=== PATIENT | male | born 1940 | race Caucasian/White ===

== ENCOUNTER → 2016-10-01 | Outpatient (CLI) | payer MEDICARE | LOC: M SMT 10:09 | PROVIDERS: ATTEND Nurse Practitioner Women's Health | DX: Z12.5 Encounter for screening for malignant neoplasm of prostate (principal) | CPT/HCPCS: 36415; G0103 ==

== ENCOUNTER → 2016-10-09 | Outpatient (CLI) | payer MEDICARE ==
[~2016-10-09] MED LIST: ASPI1TAB PO; CIPR500T3 PO; MULT1TAB10 PO; OMEG1400 PO; RAPA8CAP PO; SIMV20TA2 PO; TRAM50TA2 PO; TYLE650T35 PO; VALS80TA PO; VITA400C97 PO; VITA500T53 PO
[2016-10-09 13:58] LABS: ANION GAP 8 MEQ/L (8-16); BLOOD UREA NITROGEN 17 MG/DL (7-18); CALCIUM LEVEL 9.1 MG/DL (8.8-10.2); CARBON DIOXIDE LEVEL 27 MEQ/L (21-32); CHLORIDE LEVEL 102 MEQ/L (98-107); CREATININE FOR GFR 1.06 MG/DL (0.70-1.30); GLOMERULAR FILTRATION RATE > 60.0 (>42); GLUCOSE, FASTING 126 MG/DL (83-110); POTASSIUM SERUM 3.9 MEQ/L (3.5-5.1); SODIUM LEVEL 137 MEQ/L (136-145)
== END ==
LOC: M SMT 08:49
PROVIDERS: ATTEND Nurse Practitioner Women's Health
DX: R31.0 Gross hematuria (principal)
CPT/HCPCS: 36415; 80048; 81001; 87086; 88108; G0463

== ENCOUNTER → 2016-10-11 | Outpatient (CLI) | payer MEDICARE ==
[~2016-10-11] MED LIST changes: -ASPI1TAB PO; -CIPR500T3 PO; +ISOVUE-370 76% 100ML VIAL (Q9967) As Ordered ONE; -MULT1TAB10 PO; -OMEG1400 PO; -RAPA8CAP PO; -SIMV20TA2 PO; -TRAM50TA2 PO; -TYLE650T35 PO; -VALS80TA PO; -VITA400C97 PO; -VITA500T53 PO
--- NOTE | 2016-10-11 09:25 | REP ---
CT abdomen pelvis multiphase imaging: Scanning is initially performed without IV contrast. This is followed by scanning with IV contrast, initially during the portal venous phase of enhancement. This is followed by delayed equilibrium phase scanning. There is a 4.6 cm bladder mass along the posterolateral bladder wall on the left. There is no hydronephrosis. There are no renal, ureteral or bladder calculi. There is a low-density 12 mm left renal mass anteriorly at the mid pole, containing internal echoes. This is not clearly a cyst by CT. I would recommend follow-up MRI or ultrasound for further evaluation. The visualized lung cohen are unremarkable. The hepatic parenchyma is homogeneous and unremarkable. The gallbladder, pancreas and spleen are unremarkable. The adrenals are unremarkable. The abdominal aorta contains occasional calcified atheroma but is otherwise unremarkable. The bowel and mesentery are unremarkable. Pelvis: The appendix is unremarkable. There is no adenopathy or ascites. The pelvic bowel loops are unremarkable. There are no lytic, blastic or destructive skeletal changes. Degenerative disc disease at L5 S1. Impression: There is a 4.6 cm bladder mass along the posterolateral bladder wall on the left. There is a 1.2 cm left renal cortical hypodensity, not clearly a cyst by CT. Recommend follow-up MRI or ultrasound for further evaluation. Degenerative disc disease at L5 S1. No adenopathy or ascites. No hydronephrosis. Signed by Raji Bridges MD 10/11/2016 09:16 A
== END ==
LOC: M RAD 07:40
PROVIDERS: ATTEND Nurse Practitioner Women's Health
DX: R31.0 Gross hematuria (principal)
CPT/HCPCS: 74178; Q9967

== ENCOUNTER → 2016-10-18 | Outpatient (REF) | payer MEDICARE | LOC: M LAB REF 13:17 | PROVIDERS: ATTEND Internal Medicine | DX: D51.9 Vitamin B12 deficiency anemia, unspecified (principal) ==

== ENCOUNTER → 2016-11-15 | Outpatient (CLI) | payer MEDICARE ==
[~2016-11-15] MED LIST changes: +ASPI1TAB PO; +CIPR500T3 PO; -ISOVUE-370 76% 100ML VIAL (Q9967) As Ordered ONE; +MULT1TAB10 PO; +OMEG1400 PO; +RAPA8CAP PO; +SIMV20TA2 PO; +TRAM50TA2 PO; +TYLE650T35 PO; +VALS80TA PO; +VITA400C97 PO; +VITA500T53 PO
--- NOTE | 2016-11-15 13:49 | REP ---
PA and lateral chest: Comparison is a 03/2005. The lung cohen are clear. The cardiac size is normal The emily, mediastinum, and bony thorax are unremarkable. Impression: Negative PA and lateral chest. There is no interval change Signed by Raji Bridges MD 11/15/2016 01:41 P
[2016-11-15 18:48] LABS: ANION GAP 9 MEQ/L (8-16); BLOOD UREA NITROGEN 19 MG/DL (7-18); CALCIUM LEVEL 9.4 MG/DL (8.8-10.2); CARBON DIOXIDE LEVEL 27 MEQ/L (21-32); CHLORIDE LEVEL 103 MEQ/L (98-107); CREATININE FOR GFR 0.98 MG/DL (0.70-1.30); GLOMERULAR FILTRATION RATE > 60.0 (>42); GLUCOSE, FASTING 125 MG/DL (83-110); POTASSIUM SERUM 3.8 MEQ/L (3.5-5.1); SODIUM LEVEL 139 MEQ/L (136-145)
[2016-11-15 19:30] LABS: MEAN CORPUSCULAR HEMOGLOBIN 35.2 pg (27.0-33.0); MEAN CORPUSCULAR HGB CONC 35.2 g/dl (32.0-36.5); MEAN CORPUSCULAR VOLUME 100.1 fl (80.0-96.0); RED CELL DISTRIBUTION WIDTH 14.1 % (11.5-14.5); WHITE BLOOD COUNT 5.2 K/mm3 (4.0-10.0)
[2016-11-15 19:51] LABS: INR 0.99
== END ==
LOC: M SMT 13:18
PROVIDERS: ATTEND Urology
DX: R31.0 Gross hematuria (principal)

== ENCOUNTER 2016-11-27 09:34 | Day surgery (SDC) | payer MEDICARE ==
[~2016-11-27] VITALS: Ht 180.3 cm; Wt 129.3 kg
[~2016-11-27 09:34] MED LIST changes: -CIPR500T3 PO; -TYLE650T35 PO
[2016-11-27] MEDS ORDERED: PROPOFOL 200 MG/20 ML VIAL As Ordered ONE ×2 (09:43→14:14)
[2016-11-27] MEDS ORDERED: MIDAZOLAM INJ 2 MG/2 ML VIAL (J2250) As Ordered ONE (09:43)
[2016-11-27] MEDS ORDERED: dexameTHASONE 4 MG/ML 1ML VIAL (J1100) As Ordered ONE ×2 (09:43→16:26)
[2016-11-27] MEDS ORDERED: LIDOCAINE 2% INJ 100 MG/5 ML SDV (FOR ANES.) As Ordered ONE (09:43)
[2016-11-27] MEDS ORDERED: fentaNYL 100 MCG/2 ML INJECTION (J3010) As Ordered ONE ×2 (09:44→15:02)
[2016-11-27] MEDS ORDERED: LR 1,000 ML IV ONE (09:45)
[2016-11-27] MEDS ORDERED: ROCURONIUM BROMIDE 50 MG/5 ML VIAL/SYRINGE As Ordered ONE ×2 (14:13→15:50)
[2016-11-27] MEDS ORDERED: GLYCOPYRROLATE INJ 0.2 MG/ML 2 ML VIAL As Ordered ONE (15:02)
[2016-11-27] MEDS ORDERED: NEOSTIGMINE 1MG/ML 5 ML SYRINGE (J2710) As Ordered ONE (15:02)
[2016-11-27] MEDS ORDERED: ONDANSETRON 4MG/2ML VIAL (J2405) As Ordered ONE (15:02)
[2016-11-27] MEDS ORDERED: LABETALOL HCL 100 MG/20 ML VIAL As Ordered ONE (15:17)
[2016-11-27] MEDS ORDERED: TYLE650T35 PO (16:42)
[2016-11-27] MEDS ORDERED: CIPR500T3 PO (16:42)
[2016-11-27] MEDS ORDERED: ONDANSETRON 4MG/2ML VIAL (J2405) IV PRN (17:15)
[2016-11-27] MEDS ORDERED: PERCOCET 5MG/325MG TAB PO PRN (17:15)
[2016-11-27] MEDS ORDERED: LR 1,000 ML IV SCH (17:15)
[2016-11-27] MEDS ORDERED: HYDROmorphone HCL 1 MG/ML SYRINGE (J1170) IV PRN (17:15)
[2016-11-27] MEDS ORDERED: fentaNYL 100 MCG/2 ML INJECTION (J3010) IV PRN (17:15)
[2016-11-27] MEDS ORDERED: LABETALOL HCL 100 MG/20 ML VIAL IV SCH (17:15)
[2016-11-27] MEDS ORDERED: CIPROFLOXACIN 500 MG TAB PO SCH (18:00)
[2016-11-27 20:45] VITALS: BP 169/76
[2016-11-27] MEDS ORDERED: ACETAMINOPHEN 650MG ER TAB (TYLENOL ARTHRITIS) PO SCH (22:00)
--- NOTE | 2016-11-29 08:10 | RO ---
DATE OF PROCEDURE: 11/27/2016 PREPROCEDURE DIAGNOSIS: Left lateral posterior papillary bladder tumor. POSTPROCEDURE DIAGNOSIS: Left lateral posterior papillary bladder tumor. FINDINGS: 5 cm posterolateral left bladder tumor with calcifications, papillary and sessile, in the posterior bladder wall lateral and involving the trigone, also, on the left side. We could see very clearly the right ureteral orifice, the left ureteral orifice was not seen clearly at all during the procedure, and was not detected at any moment in time during the procedure. PROCEDURE: Cystoscopy, plus urethral dilatation, plus transurethral resection of bladder tumor, bipolar transurethral resection of bladder tumor. SURGEON: Azar Monahan MD REFLOW OPERATOR: ANESTHESIA: General. COMPLICATIONS: None. ESTIMATED BLOOD LOSS: N/A. HISTORY OF THE PRESENT ILLNESS: A 76-year-old male patient with a history of hematuria. He had a CT scan of the abdomen and pelvis, which actually shows a very large papillary mass in the posterolateral wall on the left side. The patient had a cystoscopy that confirmed this mass in the bladder. It was very difficult to actually visualize the trigone at that moment in time. For this reason, he was consented for a cystoscopy, plus transurethral resection of bladder tumor. DESCRIPTION OF PROCEDURE: With the patient under general anesthesia in supine modified low lithotomy position, after prepping and draping the area of concern, which included the entire genitalia and abdomen, we introduced a #21-[place] cystoscope with a 30-degree lens under videoendoscopic guidance. We could not pass the cystoscope through the penile fossa navicularis. For this reason, we dilated the urethra with a 30 Charriere Radha sound. We then passed the cystoscope. The penile urethra, bulbar urethra, membranous urethra and prostatic urethra were totally normal. The prostate had lateral lobes touching and a small middle lobe. You could see the right ureteral orifice very well. The left ureteral orifice was not seen; it was covered completely by this left lateral solid sessile with calcifications and papillary mass, about 5 cm in diameter. There were no other tumors in the bladder. We then proceeded to exchange the cystoscope for a resectoscope and resected the mass. It was very difficult to resect the mass because it was a very large tumor. Once the whole tumor was resected, we resected also the deep tissue, and we fulgurated bleeding vessels. We tried to visualize the ureteral orifice. There was no ureteral orifice. We think that the mass is actually lateral to the ureteral orifice on the left side that also was involving the left ureteral orifice. However, on the prior CT scan, there was no hydronephrosis. At that moment I time, we waited to have some urine coming out from the right ureteral orifice. We could see the right ureteral orifice very clearly. The left ureteral orifice was not seen at all and was not visualized. For this reason, we decided to actually not fulgurate so much on the area of the trigone to prevent any occlusion. We only resected at that level, but we could not visualize at all the ureteral orifice on that side. For this reason, we actually took out the chips of the bladder tumor with an [employer] evacuator, and once hemostasis was confirmed, we took the resectoscope and placed a Lainez catheter, #20-Northern Irish, three-way, inflated the balloon to 30 mL. PLAN: The patient will go home when the urine return is clear. He will have a voiding trial in about 5 days. 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 This is the best option for him at this moment in time since the mass is so large, more than 5 cm, with calcifications showing very high aggressivity and involving the muscle. We will actually plan for this once the patient is totally recovered from this procedure. In any case, if there is any left flank pain, and the patient has hydronephrosis on the left side, we will have to put a nephrostomy tube on that left side. We will follow the patient closely.
== END 2016-11-27 20:50 | disposition home or self-care (01) ==
LOC: M SDC 09:34
PROVIDERS: ATTEND Urology
DX: C67.9 Malignant neoplasm of bladder, unspecified (principal); I11.9 Hypertensive heart disease without heart failure; E78.5 Hyperlipidemia, unspecified; M12.9 Arthropathy, unspecified; M54.9 Dorsalgia, unspecified; R51 Headache; E53.8 Deficiency of other specified B group vitamins; R73.01 Impaired fasting glucose; N40.0 Benign prostatic hyperplasia without lower urinary tract symptoms; Z79.899 Other long term (current) drug therapy; Z79.82 Long term (current) use of aspirin; Z87.891 Personal history of nicotine dependence; Z96.1 Presence of intraocular lens
CPT/HCPCS: 36415; 52235; 86850; 86900; 86901; 88305; J0690; J1100; J2250; J2405; J2710; J3010

== ENCOUNTER → 2016-12-26 | Outpatient (REF) | payer MEDICARE ==
[~2016-12-26] MED LIST changes: +CIPR500T3 PO; +TYLE650T35 PO
== END ==
LOC: M SMT 13:10
PROVIDERS: ATTEND Nurse Practitioner Women's Health
DX: R31.0 Gross hematuria (principal)

== ENCOUNTER → 2017-03-03 | Outpatient (REF) | payer MEDICARE ==
[~2017-03-03] MED LIST changes: +FISH100049 PO
== END ==
LOC: M SMT 13:08
PROVIDERS: ATTEND Urology
DX: Z01.818 Encounter for other preprocedural examination (principal); C67.9 Malignant neoplasm of bladder, unspecified

== ENCOUNTER → 2017-03-25 | Outpatient (CLI) | payer MEDICARE ==
[2017-03-25 13:06] LABS: MEAN CORPUSCULAR HEMOGLOBIN 34.2 pg (27.0-33.0); MEAN CORPUSCULAR HGB CONC 34.7 g/dl (32.0-36.5); MEAN CORPUSCULAR VOLUME 98.6 fl (80.0-96.0); PLATELET COUNT, AUTOMATED 248 10^3/uL (150-450); RED CELL DISTRIBUTION WIDTH 14.2 % (11.5-14.5); WHITE BLOOD COUNT 6.1 10^3/uL (4.0-10.0)
[2017-03-25 13:14] LABS: ANION GAP 6 MEQ/L (8-16); BLOOD UREA NITROGEN 20 MG/DL (7-18); CALCIUM LEVEL 9.4 MG/DL (8.8-10.2); CARBON DIOXIDE LEVEL 31 MEQ/L (21-32); CHLORIDE LEVEL 105 MEQ/L (98-107); CREATININE FOR GFR 1.04 MG/DL (0.70-1.30); GLOMERULAR FILTRATION RATE > 60.0 (>42); GLUCOSE, FASTING 110 MG/DL (83-110); POTASSIUM SERUM 4.6 MEQ/L (3.5-5.1); SODIUM LEVEL 142 MEQ/L (136-145)
== END ==
LOC: M SMT 10:40
PROVIDERS: ATTEND Urology
DX: Z01.818 Encounter for other preprocedural examination (principal); C67.9 Malignant neoplasm of bladder, unspecified

== ENCOUNTER 2017-04-09 11:28 | Day surgery (SDC) | payer MEDICARE ==
[~2017-04-09] VITALS: Ht 180.3 cm; Wt 126.0 kg
[2017-04-09] MEDS ORDERED: LR 1,000 ML IV ONE (11:45)
[2017-04-09] MEDS ORDERED: WATER INTRAVESIC ONE (12:30)
[2017-04-09] MEDS ORDERED: MITOMYCIN 40 MG INTRAVESIC ONE (12:30)
[2017-04-09] MEDS ORDERED: PROPOFOL 200 MG/20 ML VIAL As Ordered ONE ×3 (14:48→16:38)
[2017-04-09] MEDS ORDERED: fentaNYL 100 MCG/2 ML INJECTION (J3010) As Ordered ONE (14:49)
[2017-04-09] MEDS ORDERED: ROCURONIUM BROMIDE 50 MG/5 ML VIAL As Ordered ONE (15:05)
[2017-04-09] MEDS ORDERED: PHENYLEPHRINE INJ 10MG/ML VIAL (J2370) As Ordered ONE (15:29)
[2017-04-09] MEDS ORDERED: METHYLENE BLUE 0.5% (5MG/ML) 10 ML AMP (PROVAYBLUE)(Q9968 PER 1MG) As Ordered ONE (16:04)
[2017-04-09] MEDS ORDERED: CONRAY-60 60% 50ML VIAL (Q9961) As Ordered ONE (16:07)
[2017-04-09] MEDS ORDERED: ISOVUE-300 61% 50ML VIAL (Q9967) As Ordered ONE (16:07)
[2017-04-09] MEDS ORDERED: NEOSTIGMINE 10 MG/10 ML VIAL (J2710) As Ordered ONE (16:21)
[2017-04-09] MEDS ORDERED: ONDANSETRON 4MG/2ML VIAL (J2405) As Ordered ONE (16:21)
[2017-04-09] MEDS ORDERED: GLYCOPYRROLATE INJ 0.2 MG/ML 2 ML VIAL As Ordered ONE (16:21)
[2017-04-09] MEDS ORDERED: TYLE650T35 PO (17:17)
[2017-04-09] MEDS ORDERED: CIPR500T3 PO (17:17)
[2017-04-09] MEDS ORDERED: fentaNYL 100 MCG/2 ML INJECTION (J3010) IV PRN (17:30)
[2017-04-09] MEDS ORDERED: ONDANSETRON 4MG/2ML VIAL (J2405) IV PRN (17:30)
[2017-04-09] MEDS ORDERED: LR 1,000 ML IV SCH (17:30)
[2017-04-09] MEDS ORDERED: PERCOCET 5MG/325MG TAB PO PRN (17:30)
[2017-04-09] MEDS ORDERED: ACETAMINOPHEN 650MG ER TAB (TYLENOL ARTHRITIS) PO PRN (17:45)
[2017-04-09] MEDS ORDERED: CIPROFLOXACIN 500 MG TAB PO SCH (18:00)
[2017-04-09 19:40] VITALS: BP 161/76
--- NOTE | 2017-04-11 10:03 | RO ---
DATE OF PROCEDURE: 04/09/2017 PREOPERATIVE DIAGNOSIS: Bladder neoplasm. POSTOPERATIVE DIAGNOSIS: Bladder neoplasm. SURGERY PERFORMED: Cystoscopy, plus exam under anesthesia, plus transurethral resection of two bladder tumors (one bladder tumor 1 cm in diameter in the posterior bladder wall on the left side and another bladder tumor about 2 cm in the left lateral wall). SURGEON: Dr. Azar Monahan SAFETY TRAINER: ANESTHESIA: Monitored anesthesia care (MAC). FINDINGS: Recurrent bladder neoplasm. Undetectable left ureteral orifice. COMPLICATIONS: None. ESTIMATED BLOOD LOSS: Minimal. HISTORY OF PRESENT ILLNESS: 76-year-old male patient who back in October of [address] scan of the abdomen and pelvis that showed a large bladder neoplasm. For this reason, he was taken to the operating room (OR) for transurethral resection of bladder tumor (TURBT). During that first cystoscopy plus TURBT, we did not find the ureteral orifice on the left side and the tumor was completely resected. The tumor showed low-grade papillary bladder tumor, non-muscle invasive. For this reason, he was followed up at 3 months with a flexible cystoscopy. The flexible cystoscopy showed two recurrences, one in the posterior bladder wall about 1 cm in diameter and one in the left lateral wall about 2 cm in diameter. For this reason, he was consented for cystoscopy plus TURBT. Of note, the patient never had flank pain or any type of abdominal pain. PROCEDURE DESCRIPTION: In a patient under MAC anesthesia in supine modified low lithotomy position, we prepped and draped the area of concern, which included the entire genitalia and abdomen. We inserted a cystoscope, #22-Kuwaiti in diameter, with a 30-degree lens under videoendoscopic guidance. We then proceeded to actually visualize that we could not pass the tip of the fossa navicularis. For this reason, we dilated the urethra with [place] sounds up to #30 Charriere. We then passed a cystoscope. The penile urethra, bulbar urethra, and membranous urethra were totally normal. The prostatic urethra had lateral lobes touching and an elevated bladder neck. The trigones showed a right ureteral orifice permeable. The bladder had a papillary tumor of about 1 cm diameter in left posterior part of the bladder and a 2 cm papillary tumor in the left superior bladder wall. The left ureteral orifice could not be seen. The trigone could be visualized, and there was no left ureteral orifice. For this reason, we took the cystoscope out and then placed a resectoscope. Under normal saline resection, bipolar resection, resected the posterior bladder neoplasm and sent it for permanent pathology analysis. We then resected left lateral wall 2 cm papillary tumor and sent it for permanent pathology analysis. In an attempt to actually try to identify the left ureteral orifice, we gave the patient methylene blue. There was some methylene blue coming out from the right ureteral orifice and none from the left. Since there was a trigone very well evident on the left side, we resected with cut only (no fulguration) the left trigone and we could not identify the left ureteral orifice at all. There was no methylene blue coming out from the left ureteral orifice. For this reason, we actually proceeded to extract every single specimen out and sent it for permanent pathology analysis also as left trigone resection. We then proceeded to actually empty the bladder and take out the resectoscope and place a Lainez catheter, #22-[place]i, inflated the balloon to 20 mL. We then proceeded to place Mitomycin C 40 mL and 40 mg and clamp the Lainez catheter for at least 1-2 hours. PLAN: The patient will pass to recovery. He will turn 15 minutes to each side, right decubito-lateral, left decubito-lateral, supine, and prone for at least 1-2 hours, and then we will open the Lainez to gravity and keep it to gravity. He will go home today with antibiotic and Tylenol for pain. He will followup on Friday for discontinuation of the Lainez. We will order a CT scan of the abdomen and pelvis with IV contrast to see if there is hydronephrosis in the left kidney and to see what is the staging at this moment in time of the recurrent papillary neoplasm of the bladder.
== END 2017-04-09 19:45 | disposition home or self-care (01) ==
LOC: M SDC 11:28
PROVIDERS: ATTEND Urology
DX: C67.2 Malignant neoplasm of lateral wall of bladder (principal); C67.4 Malignant neoplasm of posterior wall of bladder; I10 Essential (primary) hypertension; E78.00 Pure hypercholesterolemia, unspecified; M16.0 Bilateral primary osteoarthritis of hip; N40.0 Benign prostatic hyperplasia without lower urinary tract symptoms; E66.9 Obesity, unspecified; Z87.891 Personal history of nicotine dependence; Z79.899 Other long term (current) drug therapy
CPT/HCPCS: 36415; 52235; 86850; 86900; 86901; 88305; J0690; J2370; J2405; J2710; J3010; J9280; Q9968

== ENCOUNTER → 2017-04-14 | Outpatient (CLI) | payer MEDICARE ==
[2017-04-14 12:15] LABS: ANION GAP 7 MEQ/L (8-16); BLOOD UREA NITROGEN 19 MG/DL (7-18); CALCIUM LEVEL 9.7 MG/DL (8.8-10.2); CARBON DIOXIDE LEVEL 31 MEQ/L (21-32); CHLORIDE LEVEL 99 MEQ/L (98-107); CREATININE FOR GFR 1.22 MG/DL (0.70-1.30); GLOMERULAR FILTRATION RATE > 60.0 (>42); GLUCOSE, FASTING 127 MG/DL (83-110); POTASSIUM SERUM 4.4 MEQ/L (3.5-5.1); SODIUM LEVEL 137 MEQ/L (136-145)
== END ==
LOC: M SMT 09:40
PROVIDERS: ATTEND Nurse Practitioner Women's Health
DX: C67.9 Malignant neoplasm of bladder, unspecified (principal)

== ENCOUNTER → 2017-04-16 | Outpatient (CLI) | payer MEDICARE ==
[~2017-04-16] MED LIST changes: +ISOVUE-370 76% 100ML VIAL (Q9967) As Ordered ONE
--- NOTE | 2017-04-17 10:13 | REP ---
CT abdomen and pelvis without and with IV contrast: Without oral contrast. CT urogram protocol. History: Bladder carcinoma. Renal lesion. On April 10, 2017, the patient underwent cystoscopy and urethral dilation. 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 Comparison study: October 11, 2016. The prior study showed a 4.6 cm bladder mass and an equivocal 1.2 cm low density left renal mass. CT contrast dose: 100 ml of intravenous Isovue 370. CT findings: Preliminary digital clinical engineering manager radiograph is unremarkable. The lung bases are clear. The liver and the spleen remain normal in size, homogeneous in texture. There is a 12 mm cyst in the left kidney. Today's study shows new moderate hydronephrosis and hydroureter on the left. There is some left posterior bladder wall thickening but the bladder mass seen previously appears to have been resected. A small droplet of air is seen in the bladder consistent with residual procedural air. There is mild perivesical stranding. No ureteral calculus is seen. Seminal vesicles and prostate are unremarkable. Left colonic diverticulosis is seen. No retroperitoneal mass or adenopathy is observed. No hydronephrosis on the right. No renal mass lesion is seen. Delayed scan images demonstrate delayed opacification of the dilated left ureter. No filling defect in the collecting system on the right is seen. Impression: Previously noted bladder tumor has been resected. Some residual procedural air is seen in the urinary bladder and there is some thickening of the left posterior bladder wall. There is new mild to moderate left-sided hydronephrosis and hydroureter. No stone is seen. Signed by Hema Hobbs MD 04/17/2017 03:55 P
== END ==
LOC: M RAD 15:21
PROVIDERS: ATTEND Nurse Practitioner Women's Health
DX: C67.9 Malignant neoplasm of bladder, unspecified (principal); N28.9 Disorder of kidney and ureter, unspecified
CPT/HCPCS: 74178; Q9967

== ENCOUNTER → 2017-04-24 | Outpatient (CLI) | payer MEDICARE ==
[~2017-04-24] MED LIST changes: -ISOVUE-370 76% 100ML VIAL (Q9967) As Ordered ONE
--- NOTE | 2017-04-24 11:54 | REP ---
Clinical: Bladder neoplasm . Comparison: 11/15/2016 . Technique: PA and lateral. Findings: The mediastinum and cardiac silhouette are normal. The lung cohen are clear and without acute consolidation, effusion, or pneumothorax. The skeletal structures are intact and normal. Impression: 1. No acute cardiopulmonary process. Signed by Andre Cai MD 04/24/2017 11:44 A
[2017-04-24 18:33] LABS: MEAN CORPUSCULAR HEMOGLOBIN 33.8 pg (27.0-33.0); MEAN CORPUSCULAR HGB CONC 34.5 g/dl (32.0-36.5); PLATELET COUNT, AUTOMATED 309 10^3/uL (150-450); RED CELL DISTRIBUTION WIDTH 13.2 % (11.5-14.5)
[2017-04-24 18:35] LABS: ANION GAP 6 MEQ/L (8-16); BLOOD UREA NITROGEN 17 MG/DL (7-18); CALCIUM LEVEL 8.9 MG/DL (8.8-10.2); CARBON DIOXIDE LEVEL 30 MEQ/L (21-32); CHLORIDE LEVEL 105 MEQ/L (98-107); CREATININE FOR GFR 0.99 MG/DL (0.70-1.30); GLOMERULAR FILTRATION RATE > 60.0 (>42); GLUCOSE, FASTING 107 MG/DL (83-110); POTASSIUM SERUM 4.4 MEQ/L (3.5-5.1); SODIUM LEVEL 141 MEQ/L (136-145)
== END ==
LOC: M SMT 11:05
PROVIDERS: ATTEND Urology
DX: C67.9 Malignant neoplasm of bladder, unspecified (principal); Z79.899 Other long term (current) drug therapy; Z79.01 Long term (current) use of anticoagulants

== ENCOUNTER 2017-05-13 05:57 | Inpatient (IN) | payer MEDICARE ==
[2017-05-13] MEDS: LR 1,000 ML IV ×2 (07:00→20:15)
[2017-05-13] MEDS ORDERED: fentaNYL 100 MCG/2 ML INJECTION (J3010) As Ordered (07:20)
[2017-05-13] MEDS ORDERED: ONDANSETRON 4MG/2ML VIAL (J2405) As Ordered ×2 (07:20→19:07)
[2017-05-13] MEDS ORDERED: ROCURONIUM BROMIDE 50 MG/5 ML VIAL As Ordered ×4 (07:20→17:31)
[2017-05-13] MEDS ORDERED: PROPOFOL 200 MG/20 ML VIAL As Ordered (07:20)
[2017-05-13] MEDS ORDERED: LIDOCAINE 2% INJ 100 MG/5 ML SDV (FOR ANES.) As Ordered (07:20)
[2017-05-13] MEDS ORDERED: METOCLOPRAMIDE INJ 10MG/2ML VIAL (J2765) As Ordered (07:20)
[2017-05-13] MEDS: CEFOTETAN DISODIUM 2 GM in APPROPRIATE DILUENT 1 EA IV (07:39)
[2017-05-13] MEDS ORDERED: fentaNYL 250 MCG/5 ML INJECTION (J3010) As Ordered ×2 (07:57→11:28)
[2017-05-13] MEDS ORDERED: hydrALAZINE INJ 20 MG/ML VIAL As Ordered (11:34)
[2017-05-13] MEDS ORDERED: dexameTHASONE 4 MG/ML 1ML VIAL (J1100) As Ordered (13:33)
[2017-05-13] MEDS: cefoTEtan INJ 2GM VIAL (S0074 PER 500MG) As Ordered (15:30)
[2017-05-13] MEDS ORDERED: GLYCOPYRROLATE INJ 0.2 MG/ML 2 ML VIAL As Ordered ×2 (19:07)
[2017-05-13] MEDS ORDERED: NEOSTIGMINE 10 MG/10 ML VIAL (J2710) As Ordered (19:07)
[2017-05-13] MEDS ORDERED: MORPHINE 10 MG/ML 1ML VIAL IV (20:15)
[2017-05-13] MEDS ORDERED: ONDANSETRON 4MG/2ML VIAL (J2405) IV ×2 (20:15)
[2017-05-13] MEDS: KCL 20MEQ IN D5/0.45NS 1000ML 1,000 ML IV (20:15)
[2017-05-13] MEDS: fentaNYL 100 MCG/2 ML INJECTION (J3010) IV ×4 (20:16→20:43)
[2017-05-13 20:48] LABS: HEMATOCRIT 40.9 % (42.0-52.0); HEMOGLOBIN 13.9 g/dl (14.0-18.0); MEAN CORPUSCULAR HEMOGLOBIN 32.9 pg (27.0-33.0); MEAN CORPUSCULAR VOLUME 96.9 fl (80.0-96.0); PLATELET COUNT, AUTOMATED 272 10^3/uL (150-450); RED BLOOD COUNT 4.22 10^6/uL (4.30-6.10); RED CELL DISTRIBUTION WIDTH 14.2 % (11.5-14.5); WHITE BLOOD COUNT 13.8 10^3/uL (4.0-10.0)
[2017-05-13] MEDS ORDERED: MEPERIDINE INJ 25 MG/ML VIAL (J2175) As Ordered (20:51)
[2017-05-13] MEDS: MEPERIDINE INJ 25 MG/ML VIAL (J2175) IV ×2 (20:56→21:03)
[2017-05-13 20:57] LABS: ANION GAP 11 MEQ/L (8-16); BLOOD UREA NITROGEN 25 MG/DL (7-18); CALCIUM LEVEL 8.7 MG/DL (8.8-10.2); CARBON DIOXIDE LEVEL 26 MEQ/L (21-32); CHLORIDE LEVEL 103 MEQ/L (98-107); CREATININE FOR GFR 2.55 MG/DL (0.70-1.30); GLOMERULAR FILTRATION RATE 26.3 (>42); GLUCOSE, FASTING 211 MG/DL (83-110); MAGNESIUM LEVEL 2.4 MG/DL (1.8-2.4); PHOSPHORUS LEVEL 3.4 MG/DL (2.5-4.9); POTASSIUM SERUM 4.1 MEQ/L (3.5-5.1); SODIUM LEVEL 140 MEQ/L (136-145)
[2017-05-13] MEDS ORDERED: KETOROLAC 30 MG/ML VIAL (J1885) IV (21:00)
[2017-05-13] MEDS: ACETAMINOPHEN 650MG ER TAB (TYLENOL ARTHRITIS) PO (22:00)
[2017-05-14] MEDS: MORPHINE 4 MG/ML 1ML SYRINGE IV ×4 (02:23→19:55)
[2017-05-14] MEDS: CEFOTETAN DISODIUM 2 GM in APPROPRIATE DILUENT 1 EA IV ×2 (03:41→14:25)
[2017-05-14] MEDS: KCL 20MEQ IN D5/0.45NS 1000ML 1,000 ML IV ×4 (04:16→22:58)
[2017-05-14] MEDS: ACETAMINOPHEN 650MG ER TAB (TYLENOL ARTHRITIS) PO ×3 (04:17→21:02)
[2017-05-14 05:52] LABS: HEMATOCRIT 36.2 % (42.0-52.0); HEMOGLOBIN 12.6 g/dl (14.0-18.0); MEAN CORPUSCULAR HEMOGLOBIN 33.5 pg (27.0-33.0); MEAN CORPUSCULAR HGB CONC 34.8 g/dl (32.0-36.5); MEAN CORPUSCULAR VOLUME 96.3 fl (80.0-96.0); PLATELET COUNT, AUTOMATED 228 10^3/uL (150-450); RED BLOOD COUNT 3.76 10^6/uL (4.30-6.10); RED CELL DISTRIBUTION WIDTH 14.1 % (11.5-14.5); WHITE BLOOD COUNT 12.4 10^3/uL (4.0-10.0)
[2017-05-14 06:07] LABS: ANION GAP 5 MEQ/L (8-16); BLOOD UREA NITROGEN 19 MG/DL (7-18); CALCIUM LEVEL 8.2 MG/DL (8.8-10.2); CARBON DIOXIDE LEVEL 30 MEQ/L (21-32); CHLORIDE LEVEL 106 MEQ/L (98-107); CREATININE FOR GFR 1.77 MG/DL (0.70-1.30); GLOMERULAR FILTRATION RATE 40.1 (>42); GLUCOSE, FASTING 172 MG/DL (83-110); POTASSIUM SERUM 4.6 MEQ/L (3.5-5.1); SODIUM LEVEL 141 MEQ/L (136-145)
[2017-05-14] MEDS: PANTOPRAZOLE 40MG INJ (PROTONIX) (C9113) IV (08:13)
[2017-05-14] MEDS: LISINOPRIL 10 MG TAB PO (08:15)
[2017-05-14] MEDS: SIMVASTATIN 20 MG TAB PO (08:15)
[2017-05-14] MEDS: hydroCHLOROthiazide 12.5 MG CAPSULE PO (08:15)
[2017-05-15] MEDS: CEFOTETAN DISODIUM 2 GM in APPROPRIATE DILUENT 1 EA IV ×2 (03:37→17:38)
[2017-05-15] MEDS: KCL 20MEQ IN D5/0.45NS 1000ML 1,000 ML IV ×3 (05:22→19:49)
[2017-05-15] MEDS: ACETAMINOPHEN 650MG ER TAB (TYLENOL ARTHRITIS) PO ×3 (05:22→21:11)
[2017-05-15 05:50] LABS: HEMATOCRIT 35.5 % (42.0-52.0); MEAN CORPUSCULAR HEMOGLOBIN 33.5 pg (27.0-33.0); MEAN CORPUSCULAR HGB CONC 33.8 g/dl (32.0-36.5); MEAN CORPUSCULAR VOLUME 99.2 fl (80.0-96.0); PLATELET COUNT, AUTOMATED 202 10^3/uL (150-450); RED BLOOD COUNT 3.58 10^6/uL (4.30-6.10); RED CELL DISTRIBUTION WIDTH 14.4 % (11.5-14.5); WHITE BLOOD COUNT 11.1 10^3/uL (4.0-10.0)
[2017-05-15 06:14] LABS: ANION GAP 6 MEQ/L (8-16); BLOOD UREA NITROGEN 11 MG/DL (7-18); CALCIUM LEVEL 8.4 MG/DL (8.8-10.2); CARBON DIOXIDE LEVEL 32 MEQ/L (21-32); CHLORIDE LEVEL 101 MEQ/L (98-107); CREATININE FOR GFR 1.36 MG/DL (0.70-1.30); GLOMERULAR FILTRATION RATE 54.4 (>42); GLUCOSE, FASTING 150 MG/DL (83-110); POTASSIUM SERUM 4.4 MEQ/L (3.5-5.1); SODIUM LEVEL 139 MEQ/L (136-145)
[2017-05-15] MEDS: MORPHINE 4 MG/ML 1ML SYRINGE IV ×3 (07:53→17:56)
[2017-05-15] MEDS: PANTOPRAZOLE 40MG INJ (PROTONIX) (C9113) IV (07:53)
[2017-05-15] MEDS: LISINOPRIL 10 MG TAB PO (07:59)
[2017-05-15] MEDS: SIMVASTATIN 20 MG TAB PO (08:00)
[2017-05-15] MEDS: hydroCHLOROthiazide 12.5 MG CAPSULE PO (08:00)
[2017-05-15] MEDS: METOPROLOL 5 MG/5 ML VIAL IV ×2 (13:01→15:21)
[2017-05-15 14:09] LABS: CK-MB VALUE MASS 5.7 NG/ML (0.0-3.6); TROPONIN I < 0.02 NG/ML (< 0.10)
[2017-05-15 14:25] LABS: CPK CREATINE PHOSPHOKINASE 1553 U/L (39-308); MB/CK RELATIVE INDEX 0.36 (< OR =4)
[2017-05-15] MEDS: METOPROLOL TART 50 MG TAB PO (15:20)
[2017-05-15 15:53] LABS: FREE THYROXINE INDEX 2.8 % (1.4-3.8); T UPTAKE 34 % (33-40); THYROXINE (T4) 8.2 UG/DL (4.5-12.0)
[2017-05-15] MEDS: METOPROLOL TART 25 MG TABLET PO (17:44)
[2017-05-15 19:39] LABS: CK-MB VALUE MASS 5.2 NG/ML (0.0-3.6); MAGNESIUM LEVEL 2.3 MG/DL (1.8-2.4); PHOSPHORUS LEVEL 2.6 MG/DL (2.5-4.9); TROPONIN I < 0.02 NG/ML (< 0.10)
[2017-05-15] MEDS: DIGOXIN INJ 0.5 MG/2 ML AMP (J1160) IV ×2 (19:44→21:12)
[2017-05-15 19:49] LABS: CPK CREATINE PHOSPHOKINASE 1513 U/L (39-308); MB/CK RELATIVE INDEX 0.34 (< OR =4)
[2017-05-16] MEDS: METOPROLOL TART 50 MG TAB PO ×4 (00:35→17:47)
[2017-05-16] MEDS: DIGOXIN INJ 0.5 MG/2 ML AMP (J1160) IV (00:36)
[2017-05-16 01:28] LABS: TROPONIN I 0.02 NG/ML (< 0.10)
[2017-05-16 01:29] LABS: CK-MB VALUE MASS 3.5 NG/ML (0.0-3.6)
[2017-05-16 01:43] LABS: CPK CREATINE PHOSPHOKINASE 1161 U/L (39-308)
[2017-05-16] MEDS: CEFOTETAN DISODIUM 2 GM in APPROPRIATE DILUENT 1 EA IV ×2 (03:45→15:35)
[2017-05-16] MEDS: ACETAMINOPHEN 650MG ER TAB (TYLENOL ARTHRITIS) PO ×3 (05:18→23:08)
[2017-05-16] MEDS: KCL 20MEQ IN D5/0.45NS 1000ML 1,000 ML IV ×2 (05:20→15:41)
[2017-05-16] MEDS: MORPHINE 4 MG/ML 1ML SYRINGE IV ×2 (05:27→09:46)
[2017-05-16 05:44] LABS: BASO % 0.4 % (0.0-1.0); EOS # 0.1 10^3/uL (0.0-0.50); EOS % 0.8 % (0.0-3.0); HEMOGLOBIN 12.5 g/dl (14.0-18.0); IMMATURE GRANULOCYTE % 0.3 % (0-0); LYMPH # 1.5 10^3/uL (1.5-4.5); LYMPH % 15.2 % (24.0-44.0); MEAN CORPUSCULAR HGB CONC 34.7 g/dl (32.0-36.5); MEAN CORPUSCULAR VOLUME 97.8 fl (80.0-96.0); MONO # 0.8 10^3/uL (0.0-0.8); MONO % 7.5 % (0.0-5.0); NEUTROPHILS # 7.6 10^3/uL (1.8-7.7); NEUTROPHILS % 75.8 % (36.0-66.0); PLATELET COUNT, AUTOMATED 224 10^3/uL (150-450); RED BLOOD COUNT 3.68 10^6/uL (4.30-6.10); RED CELL DISTRIBUTION WIDTH 14.1 % (11.5-14.5)
[2017-05-16 05:54] LABS: ALBUMIN 2.6 GM/DL (3.2-5.2); ALBUMIN/GLOBULIN RATIO 0.81 (1.00-1.93); ALKALINE PHOSPHATASE 58 U/L (45-117); ALT/SGPT 35 U/L (12-78); ANION GAP 5 MEQ/L (8-16); AST/SGOT 56 U/L (7-37); BILIRUBIN,TOTAL 0.5 MG/DL (0.2-1.0); BLOOD UREA NITROGEN 12 MG/DL (7-18); CALCIUM LEVEL 8.1 MG/DL (8.8-10.2); CARBON DIOXIDE LEVEL 31 MEQ/L (21-32); CHLORIDE LEVEL 104 MEQ/L (98-107); CREATININE FOR GFR 1.37 MG/DL (0.70-1.30); FERRITIN 343 NG/ML (26-388); GLOMERULAR FILTRATION RATE 53.9 (>42); GLUCOSE, FASTING 140 MG/DL (83-110); IRON (FE) 22 UG/DL (65-175); MAGNESIUM LEVEL 2.4 MG/DL (1.8-2.4); PERCENT SATURATION 10.7 % (19.7-50.0); POTASSIUM SERUM 4.5 MEQ/L (3.5-5.1); SODIUM LEVEL 140 MEQ/L (136-145); TOTAL IRON BINDING CAPACITY 205 UG/DL (250-450); TOTAL PROTEIN 5.8 GM/DL (6.4-8.2)
[2017-05-16] MEDS: LISINOPRIL 10 MG TAB PO (09:39)
[2017-05-16] MEDS: DIGOXIN 0.25 MG TAB PO (09:39)
[2017-05-16] MEDS: PANTOPRAZOLE 40MG INJ (PROTONIX) (C9113) IV (09:39)
[2017-05-16] MEDS: SIMVASTATIN 20 MG TAB PO (09:39)
[2017-05-16 09:43] LABS: VITAMIN B12 LEVEL 305 PG/ML (247-911)
[2017-05-16 09:44] LABS: FOLATE 15.9 NG/ML (>5.4)
[2017-05-16] MEDS: SODIUM CHLORIDE 0.9% 1000 ML IV (10:27)
[2017-05-16] MEDS ORDERED: NS 500 ML IV (10:30)
[2017-05-16] MEDS: KETOROLAC 30 MG/ML VIAL (J1885) IV ×2 (15:35→22:00)
[2017-05-16] MEDS: NS 500 ML IV (19:05)
[2017-05-16] MEDS: SENOKOT S TAB PO (23:08)
[2017-05-17] MEDS: METOPROLOL TART 50 MG TAB PO ×4 (00:35→08:23)
[2017-05-17] MEDS: CEFOTETAN DISODIUM 2 GM in APPROPRIATE DILUENT 1 EA IV (04:21)
[2017-05-17] MEDS: KCL 20MEQ IN D5/0.45NS 1000ML 1,000 ML IV ×3 (04:22→21:38)
[2017-05-17 05:33] LABS: BASO # 0.1 10^3/uL (0.0-0.2); BASO % 0.6 % (0.0-1.0); EOS # 0.2 10^3/uL (0.0-0.50); EOS % 2.4 % (0.0-3.0); HEMATOCRIT 35.6 % (42.0-52.0); HEMOGLOBIN 12.4 g/dl (14.0-18.0); IMMATURE GRANULOCYTE % 0.4 % (0-0); LYMPH # 1.4 10^3/uL (1.5-4.5); LYMPH % 17.3 % (24.0-44.0); MEAN CORPUSCULAR HEMOGLOBIN 33.7 pg (27.0-33.0); MEAN CORPUSCULAR HGB CONC 34.8 g/dl (32.0-36.5); MEAN CORPUSCULAR VOLUME 96.7 fl (80.0-96.0); MONO # 0.6 10^3/uL (0.0-0.8); MONO % 7.3 % (0.0-5.0); NEUTROPHILS # 5.9 10^3/uL (1.8-7.7); PLATELET COUNT, AUTOMATED 207 10^3/uL (150-450); RED BLOOD COUNT 3.68 10^6/uL (4.30-6.10); RED CELL DISTRIBUTION WIDTH 13.7 % (11.5-14.5); WHITE BLOOD COUNT 8.2 10^3/uL (4.0-10.0)
[2017-05-17] MEDS: KETOROLAC 30 MG/ML VIAL (J1885) IV (06:00)
[2017-05-17] MEDS: ACETAMINOPHEN 650MG ER TAB (TYLENOL ARTHRITIS) PO (06:00)
[2017-05-17 06:02] LABS: ALBUMIN 2.3 GM/DL (3.2-5.2); ALBUMIN/GLOBULIN RATIO 0.58 (1.00-1.93); ALKALINE PHOSPHATASE 64 U/L (45-117); ALT/SGPT 62 U/L (12-78); ANION GAP 4 MEQ/L (8-16); AST/SGOT 61 U/L (7-37); BILIRUBIN,TOTAL 0.6 MG/DL (0.2-1.0); BLOOD UREA NITROGEN 12 MG/DL (7-18); CALCIUM LEVEL 8.3 MG/DL (8.8-10.2); CARBON DIOXIDE LEVEL 30 MEQ/L (21-32); CHLORIDE LEVEL 107 MEQ/L (98-107); GLOMERULAR FILTRATION RATE 48.6 (>42); GLUCOSE, FASTING 134 MG/DL (83-110); MAGNESIUM LEVEL 2.2 MG/DL (1.8-2.4); POTASSIUM SERUM 4.3 MEQ/L (3.5-5.1); SODIUM LEVEL 141 MEQ/L (136-145); TOTAL PROTEIN 6.3 GM/DL (6.4-8.2)
[2017-05-17 07:37] LABS: DIGOXIN LEVEL 0.9 NG/ML (0.5-2.0)
[2017-05-17] MEDS: NS 500 ML IV (07:45)
[2017-05-17] MEDS: METOPROLOL TARTRATE 100 MG TAB PO ×2 (07:49→20:49)
[2017-05-17] MEDS: LISINOPRIL 10 MG TAB PO (08:17)
[2017-05-17] MEDS: SIMVASTATIN 20 MG TAB PO (08:23)
[2017-05-17] MEDS: DIGOXIN 0.25 MG TAB PO (08:24)
[2017-05-17] MEDS: PANTOPRAZOLE 40MG INJ (PROTONIX) (C9113) IV (08:24)
[2017-05-17] MEDS: SENOKOT S TAB PO (08:24)
[2017-05-17] MEDS: ACETAMINOPHEN 500 MG TAB PO ×3 (11:37→20:50)
[2017-05-17] MEDS: AMIODARONE 200 MG TAB (PACERONE) PO ×2 (16:06→20:48)
[2017-05-17] MEDS: MORPHINE 4 MG/ML 1ML SYRINGE IV (18:16)
[2017-05-17] MEDS: CEFDINIR 300 MG CAP (OMNICEF) PO (20:49)
[2017-05-18 04:39] LABS: BASO % 0.5 % (0.0-1.0); EOS # 0.2 10^3/uL (0.0-0.50); EOS % 3.1 % (0.0-3.0); IMMATURE GRANULOCYTE % 0.3 % (0-0); LYMPH # 1.4 10^3/uL (1.5-4.5); LYMPH % 18.8 % (24.0-44.0); MEAN CORPUSCULAR HGB CONC 34.3 g/dl (32.0-36.5); MEAN CORPUSCULAR VOLUME 96.2 fl (80.0-96.0); MONO # 0.6 10^3/uL (0.0-0.8); MONO % 8.1 % (0.0-5.0); NEUTROPHILS # 5.3 10^3/uL (1.8-7.7); NEUTROPHILS % 69.2 % (36.0-66.0); PLATELET COUNT, AUTOMATED 240 10^3/uL (150-450); RED BLOOD COUNT 3.64 10^6/uL (4.30-6.10); RED CELL DISTRIBUTION WIDTH 13.9 % (11.5-14.5); WHITE BLOOD COUNT 7.6 10^3/uL (4.0-10.0)
[2017-05-18 04:58] LABS: ALBUMIN 2.3 GM/DL (3.2-5.2); ALBUMIN/GLOBULIN RATIO 0.59 (1.00-1.93); ALKALINE PHOSPHATASE 69 U/L (45-117); ALT/SGPT 136 U/L (12-78); ANION GAP 6 MEQ/L (8-16); AST/SGOT 107 U/L (7-37); BILIRUBIN,TOTAL 0.6 MG/DL (0.2-1.0); BLOOD UREA NITROGEN 13 MG/DL (7-18); CARBON DIOXIDE LEVEL 27 MEQ/L (21-32); CHLORIDE LEVEL 108 MEQ/L (98-107); CREATININE FOR GFR 0.88 MG/DL (0.70-1.30); GLOMERULAR FILTRATION RATE > 60.0 (>42); GLUCOSE, FASTING 128 MG/DL (83-110); MAGNESIUM LEVEL 2.3 MG/DL (1.8-2.4); POTASSIUM SERUM 4.1 MEQ/L (3.5-5.1); SODIUM LEVEL 141 MEQ/L (136-145); TOTAL PROTEIN 6.2 GM/DL (6.4-8.2)
[2017-05-18] MEDS: KCL 20MEQ IN D5/0.45NS 1000ML 1,000 ML IV (07:21)
[2017-05-18] MEDS: SIMVASTATIN 20 MG TAB PO (08:01)
[2017-05-18] MEDS: AMIODARONE 200 MG TAB (PACERONE) PO ×3 (08:01→20:45)
[2017-05-18] MEDS: ACETAMINOPHEN 500 MG TAB PO (08:01)
[2017-05-18] MEDS: CEFDINIR 300 MG CAP (OMNICEF) PO ×2 (08:01→20:45)
[2017-05-18] MEDS: METOPROLOL TARTRATE 100 MG TAB PO (08:02)
[2017-05-18] MEDS: PANTOPRAZOLE 40MG INJ (PROTONIX) (C9113) IV (08:02)
[2017-05-18] MEDS: LISINOPRIL 10 MG TAB PO (08:02)
[2017-05-18] MEDS ORDERED: oxyCODONE 5MG TAB PO (10:45)
[2017-05-18 12:09] LABS: CREATININE BF 0.9 MG/DL (NOT ESTABLISHED); SOURCE, BODY FLUID CREATININE OTHER
[2017-05-18] MEDS: METOPROLOL TART 50 MG TAB PO ×2 (16:13→20:46)
[2017-05-19] MEDS: DIGOXIN INJ 0.5 MG/2 ML AMP (J1160) IV (02:09)
[2017-05-19 05:21] LABS: BASO # 0.1 10^3/uL (0.0-0.2); BASO % 0.6 % (0.0-1.0); EOS # 0.2 10^3/uL (0.0-0.50); EOS % 1.8 % (0.0-3.0); HEMATOCRIT 35.2 % (42.0-52.0); HEMOGLOBIN 12.6 g/dl (14.0-18.0); IMMATURE GRANULOCYTE % 0.3 % (0-0); LYMPH # 1.4 10^3/uL (1.5-4.5); LYMPH % 16.3 % (24.0-44.0); MEAN CORPUSCULAR HEMOGLOBIN 33.9 pg (27.0-33.0); MEAN CORPUSCULAR HGB CONC 35.8 g/dl (32.0-36.5); MEAN CORPUSCULAR VOLUME 94.6 fl (80.0-96.0); MONO # 0.6 10^3/uL (0.0-0.8); MONO % 7.2 % (0.0-5.0); NEUTROPHILS # 6.5 10^3/uL (1.8-7.7); NEUTROPHILS % 73.8 % (36.0-66.0); PLATELET COUNT, AUTOMATED 276 10^3/uL (150-450); RED BLOOD COUNT 3.72 10^6/uL (4.30-6.10); WHITE BLOOD COUNT 8.8 10^3/uL (4.0-10.0)
[2017-05-19 05:55] LABS: ALBUMIN 2.2 GM/DL (3.2-5.2); ALBUMIN/GLOBULIN RATIO 0.52 (1.00-1.93); ALKALINE PHOSPHATASE 77 U/L (45-117); ALT/SGPT 224 U/L (12-78); ANION GAP 9 MEQ/L (8-16); AST/SGOT 162 U/L (7-37); BILIRUBIN,TOTAL 0.8 MG/DL (0.2-1.0); BLOOD UREA NITROGEN 17 MG/DL (7-18); CALCIUM LEVEL 8.6 MG/DL (8.8-10.2); CARBON DIOXIDE LEVEL 26 MEQ/L (21-32); CHLORIDE LEVEL 106 MEQ/L (98-107); CREATININE FOR GFR 1.06 MG/DL (0.70-1.30); GLOMERULAR FILTRATION RATE > 60.0 (>42); GLUCOSE, FASTING 124 MG/DL (83-110); MAGNESIUM LEVEL 2.4 MG/DL (1.8-2.4); POTASSIUM SERUM 3.9 MEQ/L (3.5-5.1); SODIUM LEVEL 141 MEQ/L (136-145); TOTAL PROTEIN 6.4 GM/DL (6.4-8.2)
[2017-05-19] MEDS ORDERED: DIGOXIN 0.25 MG TAB PO (09:00)
[2017-05-19] MEDS: LISINOPRIL 10 MG TAB PO (09:00)
[2017-05-19] MEDS: AMIODARONE 200 MG TAB (PACERONE) PO ×3 (09:17→19:59)
[2017-05-19] MEDS: METOPROLOL TART 50 MG TAB PO ×3 (09:18→19:59)
[2017-05-19] MEDS: DIGOXIN 0.25 MG TAB PO (09:18)
[2017-05-19] MEDS: CEFDINIR 300 MG CAP (OMNICEF) PO ×2 (09:19→19:59)
[2017-05-19] MEDS: APIXABAN 5 MG TAB (ELIQUIS) PO ×2 (09:20→19:59)
[2017-05-19] MEDS: PANTOPRAZOLE 40MG INJ (PROTONIX) (C9113) IV (09:22)
[2017-05-19] MEDS: SIMVASTATIN 20 MG TAB PO (19:59)
[2017-05-20 05:50] LABS: BASO # 0.1 10^3/uL (0.0-0.2); BASO % 0.8 % (0.0-1.0); EOS # 0.2 10^3/uL (0.0-0.50); EOS % 2.3 % (0.0-3.0); HEMATOCRIT 35.7 % (42.0-52.0); HEMOGLOBIN 12.6 g/dl (14.0-18.0); IMMATURE GRANULOCYTE % 0.3 % (0-0); LYMPH # 1.7 10^3/uL (1.5-4.5); LYMPH % 18.1 % (24.0-44.0); MEAN CORPUSCULAR HEMOGLOBIN 33.5 pg (27.0-33.0); MEAN CORPUSCULAR HGB CONC 35.3 g/dl (32.0-36.5); MEAN CORPUSCULAR VOLUME 94.9 fl (80.0-96.0); MONO # 0.7 10^3/uL (0.0-0.8); MONO % 7.4 % (0.0-5.0); NEUTROPHILS # 6.6 10^3/uL (1.8-7.7); NEUTROPHILS % 71.1 % (36.0-66.0); PLATELET COUNT, AUTOMATED 306 10^3/uL (150-450); RED BLOOD COUNT 3.76 10^6/uL (4.30-6.10); WHITE BLOOD COUNT 9.3 10^3/uL (4.0-10.0)
[2017-05-20 06:11] LABS: ALBUMIN 2.4 GM/DL (3.2-5.2); ALBUMIN/GLOBULIN RATIO 0.59 (1.00-1.93); ALKALINE PHOSPHATASE 79 U/L (45-117); ALT/SGPT 184 U/L (12-78); ANION GAP 7 MEQ/L (8-16); AST/SGOT 83 U/L (7-37); BILIRUBIN,TOTAL 0.8 MG/DL (0.2-1.0); BLOOD UREA NITROGEN 20 MG/DL (7-18); CALCIUM LEVEL 8.7 MG/DL (8.8-10.2); CARBON DIOXIDE LEVEL 29 MEQ/L (21-32); CHLORIDE LEVEL 105 MEQ/L (98-107); GLOMERULAR FILTRATION RATE > 60.0 (>42); GLUCOSE, FASTING 97 MG/DL (70-100); MAGNESIUM LEVEL 2.4 MG/DL (1.8-2.4); POTASSIUM SERUM 4.3 MEQ/L (3.5-5.1); SODIUM LEVEL 141 MEQ/L (136-145); TOTAL PROTEIN 6.5 GM/DL (6.4-8.2)
[2017-05-20] MEDS: PANTOPRAZOLE 40MG INJ (PROTONIX) (C9113) IV (08:46)
[2017-05-20] MEDS: CEFDINIR 300 MG CAP (OMNICEF) PO ×2 (08:47→21:25)
[2017-05-20] MEDS: LISINOPRIL 10 MG TAB PO (08:47)
[2017-05-20] MEDS: APIXABAN 5 MG TAB (ELIQUIS) PO ×2 (08:48→21:25)
[2017-05-20] MEDS ORDERED: PROPOFOL 200 MG/20 ML VIAL As Ordered (14:28)
[2017-05-20] MEDS ORDERED: MIDAZOLAM INJ 2 MG/2 ML VIAL (J2250) As Ordered (14:29)
[2017-05-20] MEDS ORDERED: fentaNYL 100 MCG/2 ML INJECTION (J3010) As Ordered (14:29)
[2017-05-20] MEDS: LIDOCAINE VISCOUS 2% SOLN 15ML UDC As Ordered (15:09)
[2017-05-20] MEDS ORDERED: PHENYLEPHRINE INJ 10MG/ML VIAL (J2370) As Ordered (15:56)
[2017-05-20] MEDS: CETACAINE SPRAY 5GM As Ordered (15:56)
[2017-05-20] MEDS ORDERED: fentaNYL 100 MCG/2 ML INJECTION (J3010) IV (16:30)
[2017-05-20] MEDS: LR 1,000 ML IV (16:30)
[2017-05-20] MEDS ORDERED: ONDANSETRON 4MG/2ML VIAL (J2405) IV (16:30)
[2017-05-20] MEDS: SIMVASTATIN 20 MG TAB PO (21:25)
[2017-05-20] MEDS: SLF 3 ML SYR IV (21:28)
[2017-05-20] MEDS ORDERED: SLF 3 ML SYR IV (21:30)
[2017-05-21] MEDS: SLF 3 ML SYR IV ×2 (03:28→16:25)
[2017-05-21 06:30] LABS: BASO # 0.1 10^3/uL (0.0-0.2); BASO % 0.7 % (0.0-1.0); EOS # 0.2 10^3/uL (0.0-0.50); HEMATOCRIT 34.2 % (42.0-52.0); HEMOGLOBIN 11.8 g/dl (14.0-18.0); IMMATURE GRANULOCYTE % 0.5 % (0-0); LYMPH # 1.3 10^3/uL (1.5-4.5); LYMPH % 16.4 % (24.0-44.0); MEAN CORPUSCULAR HEMOGLOBIN 32.9 pg (27.0-33.0); MEAN CORPUSCULAR HGB CONC 34.5 g/dl (32.0-36.5); MEAN CORPUSCULAR VOLUME 95.3 fl (80.0-96.0); MONO # 0.6 10^3/uL (0.0-0.8); MONO % 7.7 % (0.0-5.0); NEUTROPHILS # 5.9 10^3/uL (1.8-7.7); NEUTROPHILS % 72.7 % (36.0-66.0); PLATELET COUNT, AUTOMATED 305 10^3/uL (150-450); RED BLOOD COUNT 3.59 10^6/uL (4.30-6.10); RED CELL DISTRIBUTION WIDTH 14.2 % (11.5-14.5); WHITE BLOOD COUNT 8.1 10^3/uL (4.0-10.0)
[2017-05-21 06:53] LABS: ALBUMIN 2.5 GM/DL (3.2-5.2); ALBUMIN/GLOBULIN RATIO 0.64 (1.00-1.93); ALKALINE PHOSPHATASE 75 U/L (45-117); ALT/SGPT 142 U/L (12-78); ANION GAP 9 MEQ/L (8-16); AST/SGOT 59 U/L (7-37); BILIRUBIN,TOTAL 0.8 MG/DL (0.2-1.0); BLOOD UREA NITROGEN 23 MG/DL (7-18); CALCIUM LEVEL 8.2 MG/DL (8.8-10.2); CARBON DIOXIDE LEVEL 24 MEQ/L (21-32); CHLORIDE LEVEL 108 MEQ/L (98-107); CREATININE FOR GFR 1.06 MG/DL (0.70-1.30); GLOMERULAR FILTRATION RATE > 60.0 (>42); GLUCOSE, FASTING 94 MG/DL (70-100); MAGNESIUM LEVEL 2.4 MG/DL (1.8-2.4); POTASSIUM SERUM 3.8 MEQ/L (3.5-5.1); SODIUM LEVEL 141 MEQ/L (136-145); TOTAL PROTEIN 6.4 GM/DL (6.4-8.2)
[2017-05-21] MEDS: CEFDINIR 300 MG CAP (OMNICEF) PO (08:06)
[2017-05-21] MEDS: APIXABAN 5 MG TAB (ELIQUIS) PO (08:06)
[2017-05-21] MEDS: PANTOPRAZOLE 40MG INJ (PROTONIX) (C9113) IV (08:06)
[2017-05-21] MEDS: LISINOPRIL 10 MG TAB PO (08:06)
== END 2017-05-21 18:00 | disposition home or self-care (01) | DRG 657 ==
LOC: M OR 05:57 → M PCU 23:39
PROC: 07TJ4ZZ Resection of Left Inguinal Lymphatic, Percutaneous Endoscopic Approach (ICD-10-PCS; principal; 2017-05-13 07:30)
PROC: 0VT04ZZ Resection of Prostate, Percutaneous Endoscopic Approach (ICD-10-PCS; 2017-05-13 07:30)
PROC: 07TH4ZZ Resection of Right Inguinal Lymphatic, Percutaneous Endoscopic Approach (ICD-10-PCS; 2017-05-13 07:30)
PROC: 0T184ZC Bypass Bilateral Ureters to Ileocutaneous, Percutaneous Endoscopic Approach (ICD-10-PCS; 2017-05-13 07:30)
PROC: 8E0W4CZ Robotic Assisted Procedure of Trunk Region, Percutaneous Endoscopic Approach (ICD-10-PCS; 2017-05-13 07:30)
PROC: 5A2204Z Restoration of Cardiac Rhythm, Single (ICD-10-PCS; 2017-05-13 07:39)
DX: C67.9 Malignant neoplasm of bladder, unspecified (principal); I48.92 Unspecified atrial flutter; N13.30 Unspecified hydronephrosis; I10 Essential (primary) hypertension; E78.5 Hyperlipidemia, unspecified; Z87.891 Personal history of nicotine dependence; R79.89 Other specified abnormal findings of blood chemistry; Z79.899 Other long term (current) drug therapy

== ENCOUNTER → 2017-05-27 | Outpatient (CLI) | payer MEDICARE ==
[~2017-05-27] MED LIST changes: -ASPI1TAB PO; -CIPR500T3 PO; +CYSTO-CONRAY II 17.2% 250ML VIAL (Q9958) As Ordered; -FISH100049 PO; -MULT1TAB10 PO; -OMEG1400 PO; -RAPA8CAP PO; -SIMV20TA2 PO; -TRAM50TA2 PO; -TYLE650T35 PO; -VALS80TA PO; -VITA400C97 PO; -VITA500T53 PO
== END ==
LOC: M RADPRO 12:49
DX: Z85.51 Personal history of malignant neoplasm of bladder (principal); R73.01 Impaired fasting glucose; D51.0 Vitamin B12 deficiency anemia due to intrinsic factor deficiency; N40.1 Benign prostatic hyperplasia with lower urinary tract symptoms; M54.9 Dorsalgia, unspecified; E78.5 Hyperlipidemia, unspecified; Z79.82 Long term (current) use of aspirin; Z79.899 Other long term (current) drug therapy; Z90.6 Acquired absence of other parts of urinary tract
CPT/HCPCS: 51600

== ENCOUNTER → 2017-06-02 | Outpatient (CLI) | payer MEDICARE ==
[2017-06-02 17:20] LABS: ANION GAP 9 MEQ/L (8-16); BLOOD UREA NITROGEN 13 MG/DL (7-18); CALCIUM LEVEL 8.9 MG/DL (8.8-10.2); CARBON DIOXIDE LEVEL 25 MEQ/L (21-32); CHLORIDE LEVEL 106 MEQ/L (98-107); CREATININE FOR GFR 1.39 MG/DL (0.70-1.30); GLUCOSE, FASTING 117 MG/DL (70-100); POTASSIUM SERUM 3.7 MEQ/L (3.5-5.1); SODIUM LEVEL 140 MEQ/L (136-145)
[2017-06-02 17:48] LABS: HEMATOCRIT 39.1 % (42.0-52.0); HEMOGLOBIN 13.5 g/dl (14.0-18.0); MEAN CORPUSCULAR HEMOGLOBIN 32.5 pg (27.0-33.0); MEAN CORPUSCULAR HGB CONC 34.5 g/dl (32.0-36.5); PLATELET COUNT, AUTOMATED 368 10^3/uL (150-450); RED BLOOD COUNT 4.16 10^6/uL (4.30-6.10); RED CELL DISTRIBUTION WIDTH 15.7 % (11.5-14.5); WHITE BLOOD COUNT 6.6 10^3/uL (4.0-10.0)
== END ==
LOC: M SMT 12:02
DX: Z85.51 Personal history of malignant neoplasm of bladder (principal)
CPT/HCPCS: 80048

== ENCOUNTER → 2017-06-09 | Outpatient (REF) | payer MEDICARE ==
[2017-06-09 14:25] LABS: APPEARANCE, URINE CLOUDY (CLEAR); BACTERIA, URINE AUTO NEGATIVE (NEGATIVE); BILIRUBIN, URINE AUTO NEGATIVE (NEGATIVE); BLOOD, URINE BLOOD 1+ (NEGATIVE); CALCIUM OXALATE CRYSTALS MODERATE; COLOR, URINE YELLOW (YELLOW); GLUCOSE, URINE (UA) AUTO NEGATIVE (NEGATIVE); KETONE, URINE AUTO TRACE mg/dL (NEGATIVE); LEUKOCYTE ESTERASE, URINE AUTO 3+ (NEGATIVE); MUCUS, URINE SMALL (NEGATIVE); NITRITE, URINE AUTO NEGATIVE (NEGATIVE); PROTEIN, URINE AUTO 2+ mg/dL (NEGATIVE); RBC, URINE AUTO 29 /HPF (0-3); SPECIFIC GRAVITY URINE AUTO 1.011 (1.002-1.035); SQUAMOUS EPITHELIAL CELL UR AU 0 /HPF (0-6); UROBILINOGEN, URINE AUTO 0.2 mg/dL (0.0-2.0); WBC, URINE AUTO TNTC /HPF (0-3); YEAST LIKE CELL URINE AUTO MODERATE
== END ==
LOC: M SMT 13:28
DX: Z85.51 Personal history of malignant neoplasm of bladder (principal); Z79.899 Other long term (current) drug therapy
CPT/HCPCS: 81001

== ENCOUNTER → 2017-06-25 | Outpatient (CLI) | payer MEDICARE ==
[2017-06-25 18:04] LABS: HEMATOCRIT 37.2 % (42.0-52.0); HEMOGLOBIN 12.8 g/dl (14.0-18.0); MEAN CORPUSCULAR HEMOGLOBIN 32.7 pg (27.0-33.0); MEAN CORPUSCULAR HGB CONC 34.4 g/dl (32.0-36.5); MEAN CORPUSCULAR VOLUME 95.1 fl (80.0-96.0); PLATELET COUNT, AUTOMATED 218 10^3/uL (150-450); RED BLOOD COUNT 3.91 10^6/uL (4.30-6.10); RED CELL DISTRIBUTION WIDTH 15.5 % (11.5-14.5); WHITE BLOOD COUNT 6.3 10^3/uL (4.0-10.0)
[2017-06-25 18:39] LABS: ANION GAP 8 MEQ/L (8-16); BLOOD UREA NITROGEN 27 MG/DL (7-18); CALCIUM LEVEL 9.5 MG/DL (8.8-10.2); CARBON DIOXIDE LEVEL 22 MEQ/L (21-32); CHLORIDE LEVEL 111 MEQ/L (98-107); CREATININE FOR GFR 1.18 MG/DL (0.70-1.30); GLOMERULAR FILTRATION RATE > 60.0 (>42); GLUCOSE, FASTING 105 MG/DL (70-100); POTASSIUM SERUM 4.5 MEQ/L (3.5-5.1); SODIUM LEVEL 141 MEQ/L (136-145)
[2017-06-25 20:35] LABS: APPEARANCE, URINE HAZY (CLEAR); BACTERIA, URINE AUTO NEGATIVE (NEGATIVE); BILIRUBIN, URINE AUTO NEGATIVE (NEGATIVE); BLOOD, URINE BLOOD 1+ (NEGATIVE); CALCIUM OXALATE CRYSTALS SMALL; COLOR, URINE YELLOW (YELLOW); GLUCOSE, URINE (UA) AUTO NEGATIVE (NEGATIVE); KETONE, URINE AUTO NEGATIVE (NEGATIVE); LEUKOCYTE ESTERASE, URINE AUTO NEGATIVE (NEGATIVE); MUCUS, URINE SMALL (NEGATIVE); NITRITE, URINE AUTO NEGATIVE (NEGATIVE); PROTEIN, URINE AUTO NEGATIVE (NEGATIVE); RBC, URINE AUTO 3 /HPF (0-3); SPECIFIC GRAVITY URINE AUTO 1.009 (1.002-1.035); SQUAMOUS EPITHELIAL CELL UR AU 0 /HPF (0-6); UROBILINOGEN, URINE AUTO 0.2 mg/dL (0.0-2.0); WBC, URINE AUTO 7 /HPF (0-3)
== END ==
LOC: M SMT 10:49
DX: Z08 Encounter for follow-up examination after completed treatment for malignant neoplasm (principal); Z85.51 Personal history of malignant neoplasm of bladder; Z79.899 Other long term (current) drug therapy
CPT/HCPCS: 80048

== ENCOUNTER 2017-07-16 09:32 | Inpatient (IN) | payer MEDICARE ==
[2017-07-16] MEDS: ACETAMINOPHEN 325 MG TAB PO (10:53)
[2017-07-16] MEDS: NS 1,000 ML IV (10:53)
[2017-07-16 11:29] LABS: APPEARANCE, URINE CLOUDY (CLEAR); BACTERIA, URINE AUTO 1+ (NEGATIVE); BILIRUBIN, URINE AUTO NEGATIVE (NEGATIVE); BLOOD, URINE BLOOD 2+ (NEGATIVE); COLOR, URINE YELLOW (YELLOW); GLUCOSE, URINE (UA) AUTO NEGATIVE (NEGATIVE); KETONE, URINE AUTO NEGATIVE (NEGATIVE); LEUKOCYTE ESTERASE, URINE AUTO 3+ (NEGATIVE); MUCUS, URINE SMALL (NEGATIVE); NITRITE, URINE AUTO NEGATIVE (NEGATIVE); PROTEIN, URINE AUTO 1+ mg/dL (NEGATIVE); RBC, URINE AUTO 12 /HPF (0-3); SPECIFIC GRAVITY URINE AUTO 1.011 (1.002-1.035); SQUAMOUS EPITHELIAL CELL UR AU 0 /HPF (0-6); UROBILINOGEN, URINE AUTO 0.2 mg/dL (0.0-2.0); WBC, URINE AUTO 26 /HPF (0-3)
[2017-07-16 12:40] LABS: BASO % 0.2 % (0.0-1.0); HEMATOCRIT 32.2 % (42.0-52.0); IMMATURE GRANULOCYTE % 0.7 % (0-3.0); LYMPH # 1.3 10^3/uL (1.5-4.5); LYMPH % 7.8 % (24.0-44.0); MEAN CORPUSCULAR HEMOGLOBIN 31.6 pg (27.0-33.0); MEAN CORPUSCULAR HGB CONC 34.2 g/dl (32.0-36.5); MEAN CORPUSCULAR VOLUME 92.5 fl (80.0-96.0); MONO # 1.3 10^3/uL (0.0-0.8); MONO % 8.3 % (0.0-5.0); NEUTROPHILS # 13.3 10^3/uL (1.8-7.7); PLATELET COUNT, AUTOMATED 215 10^3/uL (150-450); RED BLOOD COUNT 3.48 10^6/uL (4.30-6.10); RED CELL DISTRIBUTION WIDTH 15.4 % (11.5-14.5); VENOUS BASE EXCESS -7.1 (-2.0-2.0); VENOUS HCO3 17.6 MEQ/L (23.0-27.0); VENOUS O2 SATURATION 92.2 % (60.0-80.0); VENOUS PARTIAL PRESSURE CO2 32.9 mmHg (38.0-50.0); VENOUS PARTIAL PRESSURE O2 66.6 mmHg (30.0-50.0); VENOUS PH 7.346 UNITS (7.330-7.430); VENOUS STANDARD HCO3 18.6 MEQ/L; VENOUS TOTAL CO2 18.6 MEQ/L (24.0-28.0); WHITE BLOOD COUNT 16.1 10^3/uL (4.0-10.0)
[2017-07-16 12:50] LABS: INR 1.45
[2017-07-16 12:51] LABS: PARTIAL THROMBOPLASTIN TIME 44.6 SECONDS (26.8-37.9)
[2017-07-16 13:11] LABS: ALBUMIN/GLOBULIN RATIO 0.88 (1.00-1.93); ALKALINE PHOSPHATASE 78 U/L (45-117); ALT/SGPT 38 U/L (12-78); AMYLASE 26 U/L (25-115); ANION GAP 11 MEQ/L (8-16); AST/SGOT 34 U/L (7-37); BILIRUBIN,DIRECT 0.3 MG/DL (0.0-0.2); BLOOD UREA NITROGEN 35 MG/DL (7-18); C REACTIVE PROTEIN QUANTITATIV 8.71 MG/DL (0.00-0.30); CALCIUM LEVEL 8.6 MG/DL (8.8-10.2); CARBON DIOXIDE LEVEL 20 MEQ/L (21-32); CHLORIDE LEVEL 109 MEQ/L (98-107); CK-MB VALUE MASS 1.1 NG/ML (<3.6); CPK CREATINE PHOSPHOKINASE 344 U/L (39-308); GLOMERULAR FILTRATION RATE 48.6 (>42); GLUCOSE, FASTING 127 MG/DL (70-100); MB/CK RELATIVE INDEX 0.31 (< OR =4); POTASSIUM SERUM 3.2 MEQ/L (3.5-5.1); SODIUM LEVEL 140 MEQ/L (136-145); TOTAL PROTEIN 6.4 GM/DL (6.4-8.2); TROPONIN I 0.53 NG/ML (< 0.10)
[2017-07-16] MEDS: CEFTRIAXONE SOD 1 GM in APPROPRIATE DILUENT 1 EA IV (13:59)
[2017-07-16 14:36] LABS: MAGNESIUM LEVEL 2.1 MG/DL (1.8-2.4)
[2017-07-16] MEDS: ONDANSETRON 4MG/2ML VIAL (J2405) IV (15:23)
[2017-07-16] MEDS: LR 1,000 ML IV ×2 (15:23→16:29)
[2017-07-16] MEDS: ACETAMINOPHEN TAB 650MG DOSE (2X325MG) PO ×3 (17:08→18:45)
[2017-07-16 17:56] LABS: LIPASE 65 U/L (73-393)
[2017-07-16] MEDS: MEROPENEM INJ 1 GM in APPROPRIATE DILUENT 1 EA IV (18:28)
[2017-07-16] MEDS: VITAMIN E 400 INTERNATIONAL UNITS CAP PO (18:32)
[2017-07-16] MEDS: POTASSIUM CHLORIDE 10 MEQ SR TABLET PO (18:33)
[2017-07-16] MEDS: LACTOBACILLUS ACIDOPHILUS CAP (BACID) PO ×2 (18:33→21:03)
[2017-07-16] MEDS: ASPIRIN 81 MG ENTERIC TAB PO (18:34)
[2017-07-16] MEDS: MULTIVITAMINS/MINERALS THERAP 1 TAB PO (18:41)
[2017-07-16] MEDS: VANCOMYCIN HCL 1,000 MG, VIAL MATE ADAPTER 1 EACH in D5W 250 ML IV ×2 (19:45→20:00)
[2017-07-16] MEDS: APIXABAN 5 MG TAB (ELIQUIS) PO (21:03)
[2017-07-16] MEDS: PERCOCET 5MG/325MG TAB PO (21:03)
[2017-07-16] MEDS: SIMVASTATIN 20 MG TAB PO (21:03)
[2017-07-16] MEDS: HEPARIN SOD (PORCINE) 5000 UNITS/ML VIAL SC (21:04)
[2017-07-16 22:14] LABS: CK-MB VALUE MASS 2.2 NG/ML (<3.6); CPK CREATINE PHOSPHOKINASE 595 U/L (39-308); MB/CK RELATIVE INDEX 0.36 (< OR =4); TROPONIN I 0.46 NG/ML (< 0.10)
[2017-07-17] MEDS: LR 1,000 ML IV ×2 (00:13→08:43)
[2017-07-17] MEDS: ACETAMINOPHEN TAB 650MG DOSE (2X325MG) PO (00:22)
[2017-07-17] MEDS: MEROPENEM INJ 1 GM in APPROPRIATE DILUENT 1 EA IV ×3 (01:12→17:30)
[2017-07-17] MEDS ORDERED: CEFEPIME HCL 2 GM in D5W MINI-BAG PLUS 50 ML IV (02:00)
[2017-07-17 04:36] LABS: HEMATOCRIT 31.3 % (42.0-52.0); HEMOGLOBIN 10.6 g/dl (14.0-18.0); MEAN CORPUSCULAR HEMOGLOBIN 32.3 pg (27.0-33.0); MEAN CORPUSCULAR HGB CONC 33.9 g/dl (32.0-36.5); MEAN CORPUSCULAR VOLUME 95.4 fl (80.0-96.0); PLATELET COUNT, AUTOMATED 177 10^3/uL (150-450); RED BLOOD COUNT 3.28 10^6/uL (4.30-6.10); RED CELL DISTRIBUTION WIDTH 15.6 % (11.5-14.5); WHITE BLOOD COUNT 17.6 10^3/uL (4.0-10.0)
[2017-07-17 04:58] LABS: ALBUMIN 2.5 GM/DL (3.2-5.2); ALBUMIN/GLOBULIN RATIO 0.66 (1.00-1.93); ALKALINE PHOSPHATASE 69 U/L (45-117); ALT/SGPT 43 U/L (12-78); ANION GAP 8 MEQ/L (8-16); AST/SGOT 47 U/L (7-37); BILIRUBIN,TOTAL 0.7 MG/DL (0.2-1.0); BLOOD UREA NITROGEN 35 MG/DL (7-18); CALCIUM LEVEL 8.2 MG/DL (8.8-10.2); CARBON DIOXIDE LEVEL 19 MEQ/L (21-32); CHLORIDE LEVEL 114 MEQ/L (98-107); CK-MB VALUE MASS 1.3 NG/ML (<3.6); CPK CREATINE PHOSPHOKINASE 539 U/L (39-308); CREATININE FOR GFR 1.62 MG/DL (0.70-1.30); GLOMERULAR FILTRATION RATE 44.4 (>42); GLUCOSE, FASTING 121 MG/DL (70-100); MB/CK RELATIVE INDEX 0.24 (< OR =4); POTASSIUM SERUM 3.7 MEQ/L (3.5-5.1); SODIUM LEVEL 141 MEQ/L (136-145); TOTAL PROTEIN 6.3 GM/DL (6.4-8.2)
[2017-07-17] MEDS: VANCOMYCIN ORAL SOL 250MG/5ML ORAL SYRINGE PO ×3 (06:02→17:39)
[2017-07-17] MEDS: VITAMIN E 400 INTERNATIONAL UNITS CAP PO (08:40)
[2017-07-17] MEDS: MULTIVITAMINS/MINERALS THERAP 1 TAB PO (08:40)
[2017-07-17] MEDS: ASPIRIN 81 MG ENTERIC TAB PO (08:40)
[2017-07-17] MEDS: APIXABAN 5 MG TAB (ELIQUIS) PO ×2 (08:40→20:06)
[2017-07-17] MEDS: LACTOBACILLUS ACIDOPHILUS CAP (BACID) PO ×3 (08:40→20:06)
[2017-07-17] MEDS: HEPARIN SOD (PORCINE) 5000 UNITS/ML VIAL SC (08:41)
[2017-07-17 10:35] LABS: ERYTHROCYTE SEDIMENTATION RATE 75 mm/hr (0-20)
[2017-07-17] MEDS: METOPROLOL 5 MG/5 ML VIAL IV ×3 (13:37→14:20)
[2017-07-17] MEDS ORDERED: ATENOLOL 50 MG TAB PO ×2 (14:45→21:00)
[2017-07-17] MEDS: DIGOXIN INJ 0.5 MG/2 ML AMP (J1160) IV ×2 (14:45→14:59)
[2017-07-17] MEDS: ATENOLOL 25 MG TAB PO (15:04)
[2017-07-17] MEDS: NS 500 ML IV (15:05)
[2017-07-17] MEDS: AMIODARONE 200 MG TAB (PACERONE) PO ×2 (17:29→20:06)
[2017-07-17] MEDS: VANCOMYCIN HCL 1,000 MG, VIAL MATE ADAPTER 1 EACH in D5W 250 ML IV (18:09)
[2017-07-17] MEDS: SIMVASTATIN 20 MG TAB PO (20:06)
[2017-07-18] MEDS: VANCOMYCIN ORAL SOL 250MG/5ML ORAL SYRINGE PO ×5 (00:11→23:44)
[2017-07-18] MEDS: ACETAMINOPHEN TAB 650MG DOSE (2X325MG) PO (00:16)
[2017-07-18] MEDS: METOPROLOL 5 MG/5 ML VIAL IV (03:11)
[2017-07-18] MEDS: NS 1,000 ML IV ×2 (04:19→10:21)
[2017-07-18 05:33] LABS: HEMOGLOBIN 9.5 g/dl (14.0-18.0); MEAN CORPUSCULAR HEMOGLOBIN 32.4 pg (27.0-33.0); MEAN CORPUSCULAR HGB CONC 32.8 g/dl (32.0-36.5); PLATELET COUNT, AUTOMATED 131 10^3/uL (150-450); RED BLOOD COUNT 2.93 10^6/uL (4.30-6.10); RED CELL DISTRIBUTION WIDTH 16.1 % (11.5-14.5); WHITE BLOOD COUNT 13.2 10^3/uL (4.0-10.0)
[2017-07-18 05:51] LABS: ALBUMIN 2.1 GM/DL (3.2-5.2); ALKALINE PHOSPHATASE 69 U/L (45-117); ALT/SGPT 97 U/L (12-78); ANION GAP 9 MEQ/L (8-16); AST/SGOT 129 U/L (7-37); BILIRUBIN,TOTAL 0.6 MG/DL (0.2-1.0); BLOOD UREA NITROGEN 38 MG/DL (7-18); CALCIUM LEVEL 7.8 MG/DL (8.8-10.2); CARBON DIOXIDE LEVEL 17 MEQ/L (21-32); CHLORIDE LEVEL 116 MEQ/L (98-107); CREATININE FOR GFR 1.32 MG/DL (0.70-1.30); GLOMERULAR FILTRATION RATE 56.3 (>42); GLUCOSE, FASTING 95 MG/DL (70-100); MAGNESIUM LEVEL 2.1 MG/DL (1.8-2.4); POTASSIUM SERUM 3.5 MEQ/L (3.5-5.1); SODIUM LEVEL 142 MEQ/L (136-145); TOTAL PROTEIN 5.6 GM/DL (6.4-8.2)
[2017-07-18] MEDS: SODIUM BICARBONATE 325 MG TAB PO ×4 (10:45→21:10)
[2017-07-18] MEDS: POTASSIUM CHLORIDE 10 MEQ SR TABLET PO (10:45)
[2017-07-18] MEDS: LACTOBACILLUS ACIDOPHILUS CAP (BACID) PO ×3 (10:45→21:10)
[2017-07-18] MEDS: MULTIVITAMINS/MINERALS THERAP 1 TAB PO (10:46)
[2017-07-18] MEDS: ASPIRIN 81 MG ENTERIC TAB PO (10:46)
[2017-07-18] MEDS: VITAMIN E 400 INTERNATIONAL UNITS CAP PO (10:46)
[2017-07-18] MEDS: LevoFLOXacin 750 MG TABLET PO (10:46)
[2017-07-18] MEDS: APIXABAN 5 MG TAB (ELIQUIS) PO ×2 (10:46→21:10)
[2017-07-18] MEDS: AMIODARONE 200 MG TAB (PACERONE) PO ×4 (10:46→21:10)
[2017-07-18 17:51] LABS: VANCOMYCIN LEVEL TROUGH 5.5 UG/ML (10.0-20.0)
[2017-07-18] MEDS: VANCOMYCIN HCL 1,000 MG, VIAL MATE ADAPTER 1 EACH in D5W 250 ML IV (18:00)
[2017-07-18] MEDS: NS 500 ML IV (18:50)
[2017-07-18] MEDS: SIMVASTATIN 20 MG TAB PO (21:10)
[2017-07-19 04:57] LABS: HEMATOCRIT 27.6 % (42.0-52.0); HEMOGLOBIN 9.3 g/dl (14.0-18.0); MEAN CORPUSCULAR HEMOGLOBIN 32.4 pg (27.0-33.0); MEAN CORPUSCULAR HGB CONC 33.7 g/dl (32.0-36.5); MEAN CORPUSCULAR VOLUME 96.2 fl (80.0-96.0); PLATELET COUNT, AUTOMATED 169 10^3/uL (150-450); RED BLOOD COUNT 2.87 10^6/uL (4.30-6.10); RED CELL DISTRIBUTION WIDTH 16.1 % (11.5-14.5); WHITE BLOOD COUNT 9.1 10^3/uL (4.0-10.0)
[2017-07-19 05:18] LABS: ALBUMIN 2.1 GM/DL (3.2-5.2); ALBUMIN/GLOBULIN RATIO 0.54 (1.00-1.93); ALKALINE PHOSPHATASE 65 U/L (45-117); ALT/SGPT 113 U/L (12-78); ANION GAP 9 MEQ/L (8-16); AST/SGOT 105 U/L (7-37); BILIRUBIN,TOTAL 0.5 MG/DL (0.2-1.0); BLOOD UREA NITROGEN 32 MG/DL (7-18); CALCIUM LEVEL 7.8 MG/DL (8.8-10.2); CARBON DIOXIDE LEVEL 20 MEQ/L (21-32); CHLORIDE LEVEL 116 MEQ/L (98-107); CREATININE FOR GFR 1.09 MG/DL (0.70-1.30); GLOMERULAR FILTRATION RATE > 60.0 (>42); GLUCOSE, FASTING 96 MG/DL (70-100); POTASSIUM SERUM 3.7 MEQ/L (3.5-5.1); SODIUM LEVEL 145 MEQ/L (136-145)
[2017-07-19] MEDS: VANCOMYCIN HCL 1,000 MG, VIAL MATE ADAPTER 1 EACH in D5W 250 ML IV ×2 (05:33→18:13)
[2017-07-19] MEDS: VANCOMYCIN ORAL SOL 250MG/5ML ORAL SYRINGE PO ×3 (05:33→18:43)
[2017-07-19] MEDS: APIXABAN 5 MG TAB (ELIQUIS) PO ×2 (08:36→22:08)
[2017-07-19] MEDS: SODIUM BICARBONATE 325 MG TAB PO ×4 (08:36→22:07)
[2017-07-19] MEDS: VITAMIN E 400 INTERNATIONAL UNITS CAP PO (08:36)
[2017-07-19] MEDS: ASPIRIN 81 MG ENTERIC TAB PO (08:36)
[2017-07-19] MEDS: LACTOBACILLUS ACIDOPHILUS CAP (BACID) PO ×3 (08:36→22:07)
[2017-07-19] MEDS: AMIODARONE 200 MG TAB (PACERONE) PO ×4 (08:36→22:08)
[2017-07-19] MEDS: MULTIVITAMINS/MINERALS THERAP 1 TAB PO (08:37)
[2017-07-19] MEDS: LevoFLOXacin 750 MG TABLET PO (09:31)
[2017-07-19] MEDS: SIMVASTATIN 20 MG TAB PO (22:08)
[2017-07-20] MEDS: VANCOMYCIN ORAL SOL 250MG/5ML ORAL SYRINGE PO ×4 (00:40→17:58)
[2017-07-20 06:23] LABS: HEMATOCRIT 28.1 % (42.0-52.0); HEMOGLOBIN 9.5 g/dl (14.0-18.0); MEAN CORPUSCULAR HEMOGLOBIN 31.8 pg (27.0-33.0); MEAN CORPUSCULAR HGB CONC 33.8 g/dl (32.0-36.5); PLATELET COUNT, AUTOMATED 198 10^3/uL (150-450); RED BLOOD COUNT 2.99 10^6/uL (4.30-6.10); RED CELL DISTRIBUTION WIDTH 15.9 % (11.5-14.5); WHITE BLOOD COUNT 7.5 10^3/uL (4.0-10.0)
[2017-07-20] MEDS: VANCOMYCIN HCL 1,000 MG, VIAL MATE ADAPTER 1 EACH in D5W 250 ML IV ×2 (06:29→17:58)
[2017-07-20] MEDS: LevoFLOXacin 750 MG TABLET PO (06:30)
[2017-07-20 06:57] LABS: ALBUMIN 2.1 GM/DL (3.2-5.2); ALBUMIN/GLOBULIN RATIO 0.53 (1.00-1.93); ALKALINE PHOSPHATASE 72 U/L (45-117); ALT/SGPT 267 U/L (12-78); ANION GAP 10 MEQ/L (8-16); AST/SGOT 219 U/L (7-37); BILIRUBIN,TOTAL 0.6 MG/DL (0.2-1.0); BLOOD UREA NITROGEN 28 MG/DL (7-18); CALCIUM LEVEL 8.2 MG/DL (8.8-10.2); CARBON DIOXIDE LEVEL 20 MEQ/L (21-32); CHLORIDE LEVEL 116 MEQ/L (98-107); GLOMERULAR FILTRATION RATE > 60.0 (>42); GLUCOSE, FASTING 90 MG/DL (70-100); MAGNESIUM LEVEL 2.1 MG/DL (1.8-2.4); POTASSIUM SERUM 3.4 MEQ/L (3.5-5.1); SODIUM LEVEL 146 MEQ/L (136-145); TOTAL PROTEIN 6.1 GM/DL (6.4-8.2)
[2017-07-20] MEDS: POTASSIUM CHLORIDE 10 MEQ SR TABLET PO (08:56)
[2017-07-20] MEDS: MULTIVITAMINS/MINERALS THERAP 1 TAB PO (08:57)
[2017-07-20] MEDS: AMIODARONE 200 MG TAB (PACERONE) PO (08:57)
[2017-07-20] MEDS: LACTOBACILLUS ACIDOPHILUS CAP (BACID) PO ×3 (08:57→21:41)
[2017-07-20] MEDS: ASPIRIN 81 MG ENTERIC TAB PO (08:58)
[2017-07-20] MEDS: VITAMIN E 400 INTERNATIONAL UNITS CAP PO (08:59)
[2017-07-20] MEDS: NS 0.45% 1,000 ML IV (09:07)
[2017-07-20] MEDS: APIXABAN 5 MG TAB (ELIQUIS) PO ×2 (10:31→21:41)
[2017-07-20 13:46] LABS: VANCOMYCIN LEVEL TROUGH 13.2 UG/ML (10.0-20.0)
[2017-07-20] MEDS: SIMVASTATIN 20 MG TAB PO (21:41)
[2017-07-20 22:26] LABS: ANION GAP 10 MEQ/L (8-16); BLOOD UREA NITROGEN 25 MG/DL (7-18); CARBON DIOXIDE LEVEL 20 MEQ/L (21-32); CHLORIDE LEVEL 114 MEQ/L (98-107); CREATININE FOR GFR 0.96 MG/DL (0.70-1.30); GLOMERULAR FILTRATION RATE > 60.0 (>42); GLUCOSE, FASTING 96 MG/DL (70-100); POTASSIUM SERUM 3.5 MEQ/L (3.5-5.1); SODIUM LEVEL 144 MEQ/L (136-145)
[2017-07-21] MEDS: VANCOMYCIN ORAL SOL 250MG/5ML ORAL SYRINGE PO ×3 (00:20→13:14)
[2017-07-21] MEDS: VANCOMYCIN HCL 1,000 MG, VIAL MATE ADAPTER 1 EACH in D5W 250 ML IV (06:00)
[2017-07-21] MEDS: LevoFLOXacin 750 MG TABLET PO (06:00)
[2017-07-21 07:37] LABS: HEMATOCRIT 27.7 % (42.0-52.0); HEMOGLOBIN 9.3 g/dl (14.0-18.0); MEAN CORPUSCULAR HEMOGLOBIN 31.5 pg (27.0-33.0); MEAN CORPUSCULAR HGB CONC 33.6 g/dl (32.0-36.5); MEAN CORPUSCULAR VOLUME 93.9 fl (80.0-96.0); PLATELET COUNT, AUTOMATED 211 10^3/uL (150-450); RED BLOOD COUNT 2.95 10^6/uL (4.30-6.10); RED CELL DISTRIBUTION WIDTH 15.8 % (11.5-14.5); WHITE BLOOD COUNT 7.5 10^3/uL (4.0-10.0)
[2017-07-21 08:03] LABS: ALBUMIN 2.2 GM/DL (3.2-5.2); ALBUMIN/GLOBULIN RATIO 0.73 (1.00-1.93); ALKALINE PHOSPHATASE 72 U/L (45-117); ALT/SGPT 276 U/L (12-78); ANION GAP 12 MEQ/L (8-16); AST/SGOT 152 U/L (7-37); BILIRUBIN,TOTAL 0.7 MG/DL (0.2-1.0); BLOOD UREA NITROGEN 25 MG/DL (7-18); CALCIUM LEVEL 7.7 MG/DL (8.8-10.2); CARBON DIOXIDE LEVEL 17 MEQ/L (21-32); CHLORIDE LEVEL 116 MEQ/L (98-107); CREATININE FOR GFR 0.94 MG/DL (0.70-1.30); GLOMERULAR FILTRATION RATE > 60.0 (>42); GLUCOSE, FASTING 107 MG/DL (70-100); MAGNESIUM LEVEL 1.9 MG/DL (1.8-2.4); POTASSIUM SERUM 3.5 MEQ/L (3.5-5.1); SODIUM LEVEL 145 MEQ/L (136-145); TOTAL PROTEIN 5.2 GM/DL (6.4-8.2)
[2017-07-21] MEDS: ASPIRIN 81 MG ENTERIC TAB PO (08:41)
[2017-07-21] MEDS: LACTOBACILLUS ACIDOPHILUS CAP (BACID) PO (08:41)
[2017-07-21] MEDS: VITAMIN E 400 INTERNATIONAL UNITS CAP PO (08:41)
[2017-07-21] MEDS: MULTIVITAMINS/MINERALS THERAP 1 TAB PO (08:41)
[2017-07-21] MEDS: APIXABAN 5 MG TAB (ELIQUIS) PO (08:41)
[2017-07-21] MEDS: SODIUM BICARBONATE 325 MG TAB PO ×2 (10:23→13:14)
== END 2017-07-21 13:30 | disposition home or self-care (01) | DRG 872 ==
LOC: M PED 07-19 16:45 → M ED 09:32 → M ED INP 14:48 → M PCU 17:17
DX: A41.9 Sepsis, unspecified organism (principal); A04.72 Enterocolitis due to Clostridium difficile, not specified as recurrent; N17.9 Acute kidney failure, unspecified; E87.2 Acidosis; E87.0 Hyperosmolality and hypernatremia; E87.6 Hypokalemia; B96.5 Pseudomonas (aeruginosa) (mallei) (pseudomallei) as the cause of diseases classified elsewhere; B95.2 Enterococcus as the cause of diseases classified elsewhere; I48.91 Unspecified atrial fibrillation; I10 Essential (primary) hypertension; E78.5 Hyperlipidemia, unspecified; Z87.891 Personal history of nicotine dependence; Z79.82 Long term (current) use of aspirin; Z79.899 Other long term (current) drug therapy; Z85.51 Personal history of malignant neoplasm of bladder

== ENCOUNTER → 2017-11-10 | Outpatient (CLI) | payer MEDICARE ==
[2017-11-10 10:08] LABS: HEMATOCRIT 38.4 % (42.0-52.0); HEMOGLOBIN 12.9 g/dl (13.5-17.5); MEAN CORPUSCULAR HEMOGLOBIN 32.5 pg (27.0-33.0); MEAN CORPUSCULAR HGB CONC 33.6 g/dl (32.0-36.5); MEAN CORPUSCULAR VOLUME 96.7 fl (80.0-96.0); PLATELET COUNT, AUTOMATED 191 10^3/uL (150-450); RED BLOOD COUNT 3.97 10^6/uL (4.30-6.10); RED CELL DISTRIBUTION WIDTH 14.9 % (11.5-14.5); WHITE BLOOD COUNT 6.5 10^3/uL (4.0-10.0)
[2017-11-10 10:17] LABS: ANION GAP 10 MEQ/L (8-16); BLOOD UREA NITROGEN 23 MG/DL (7-18); CALCIUM LEVEL 8.4 MG/DL (8.8-10.2); CARBON DIOXIDE LEVEL 21 MEQ/L (21-32); CHLORIDE LEVEL 117 MEQ/L (98-107); GLOMERULAR FILTRATION RATE > 60.0 (>42); GLUCOSE, FASTING 110 MG/DL (70-100); POTASSIUM SERUM 4.2 MEQ/L (3.5-5.1); SODIUM LEVEL 148 MEQ/L (136-145)
== END ==
LOC: M SMT 08:30
DX: Z85.51 Personal history of malignant neoplasm of bladder (principal)
CPT/HCPCS: 80048

== ENCOUNTER → 2017-11-25 | Outpatient (CLI) | payer MEDICARE ==
[2017-11-25 14:20] LABS: ANION GAP 8 MEQ/L (8-16); BLOOD UREA NITROGEN 18 MG/DL (7-18); CALCIUM LEVEL 8.5 MG/DL (8.8-10.2); CARBON DIOXIDE LEVEL 26 MEQ/L (21-32); CHLORIDE LEVEL 110 MEQ/L (98-107); CREATININE FOR GFR 1.32 MG/DL (0.70-1.30); GLOMERULAR FILTRATION RATE 56.1 (>42); GLUCOSE, FASTING 100 MG/DL (70-100); POTASSIUM SERUM 3.6 MEQ/L (3.5-5.1); SODIUM LEVEL 144 MEQ/L (136-145)
== END ==
LOC: M SMT 10:50
DX: I10 Essential (primary) hypertension (principal)
CPT/HCPCS: 80048

== ENCOUNTER → 2017-12-10 | Outpatient (CLI) | payer MEDICARE ==
[2017-12-10 13:25] LABS: BASO # 0.1 10^3/uL (0.0-0.2); BASO % 0.8 % (0.0-1.0); EOS % 0.4 % (0.0-3.0); HEMOGLOBIN 14.1 g/dl (13.5-17.5); IMMATURE GRANULOCYTE # 0.1 10^3/uL (0-0); IMMATURE GRANULOCYTE % 0.7 % (0-3.0); LYMPH # 2.4 10^3/uL (1.5-4.5); MEAN CORPUSCULAR HEMOGLOBIN 31.4 pg (27.0-33.0); MEAN CORPUSCULAR HGB CONC 32.8 g/dl (32.0-36.5); MEAN CORPUSCULAR VOLUME 95.8 fl (80.0-96.0); MONO # 0.7 10^3/uL (0.0-0.8); MONO % 7.9 % (0.0-5.0); NEUTROPHILS # 5.9 10^3/uL (1.8-7.7); NEUTROPHILS % 64.2 % (36.0-66.0); PLATELET COUNT, AUTOMATED 342 10^3/uL (150-450); RED BLOOD COUNT 4.49 10^6/uL (4.30-6.10); RED CELL DISTRIBUTION WIDTH 13.3 % (11.5-14.5); WHITE BLOOD COUNT 9.1 10^3/uL (4.0-10.0)
[2017-12-10 13:49] LABS: ALBUMIN 3.5 GM/DL (3.2-5.2); ALKALINE PHOSPHATASE 98 U/L (45-117); ALT/SGPT 91 U/L (12-78); ANION GAP 12 MEQ/L (8-16); AST/SGOT 46 U/L (7-37); BILIRUBIN,TOTAL 0.7 MG/DL (0.2-1.0); BLOOD UREA NITROGEN 31 MG/DL (7-18); CALCIUM LEVEL 8.9 MG/DL (8.8-10.2); CARBON DIOXIDE LEVEL 23 MEQ/L (21-32); CHLORIDE LEVEL 103 MEQ/L (98-107); CREATININE FOR GFR 1.66 MG/DL (0.70-1.30); GLOMERULAR FILTRATION RATE 43.1 (>42); GLUCOSE, FASTING 121 MG/DL (70-100); POTASSIUM SERUM 4.9 MEQ/L (3.5-5.1); SODIUM LEVEL 138 MEQ/L (136-145); TOTAL PROTEIN 7.4 GM/DL (6.4-8.2)
== END ==
LOC: M SMT 09:44
DX: I48.3 Typical atrial flutter (principal)
CPT/HCPCS: 80053

== ENCOUNTER 2017-12-15 14:41 | Day surgery (SDC) | payer MEDICARE ==
[2017-12-15] MEDS: LR 1,000 ML IV (15:00)
[2017-12-15 15:10] LABS: INR 1.42; PROTHROMBIN TIME 17.6 SECONDS (12.1-14.4)
[2017-12-15] MEDS ORDERED: MIDAZOLAM INJ 2 MG/2 ML VIAL (J2250) As Ordered (15:49)
[2017-12-15] MEDS ORDERED: LIDOCAINE 2% INJ 100 MG/5 ML SDV (FOR ANES.) As Ordered (15:49)
[2017-12-15] MEDS ORDERED: fentaNYL 100 MCG/2 ML INJECTION (J3010) As Ordered (15:49)
[2017-12-15] MEDS ORDERED: PROPOFOL 200 MG/20 ML VIAL As Ordered (15:49)
[2017-12-15] MEDS: CETACAINE SPRAY 5GM As Ordered (15:56)
[2017-12-15] MEDS ORDERED: ONDANSETRON 4MG/2ML VIAL (J2405) IV (16:30)
[2017-12-15] MEDS ORDERED: LR 1,000 ML IV (16:30)
== END 2017-12-15 17:35 | disposition home or self-care (01) ==
LOC: M SDC 14:41
DX: I48.4 Atypical atrial flutter (principal); I48.91 Unspecified atrial fibrillation; I10 Essential (primary) hypertension; E78.5 Hyperlipidemia, unspecified; Z79.899 Other long term (current) drug therapy; N40.0 Benign prostatic hyperplasia without lower urinary tract symptoms; Z85.51 Personal history of malignant neoplasm of bladder; Z79.01 Long term (current) use of anticoagulants
CPT/HCPCS: 92960

== ENCOUNTER → 2018-02-09 | Outpatient (CLI) | payer MEDICARE ==
[2018-02-09 13:16] LABS: HEMATOCRIT 35.3 % (42.0-52.0); HEMOGLOBIN 11.4 g/dl (13.5-17.5); MEAN CORPUSCULAR HEMOGLOBIN 31.5 pg (27.0-33.0); MEAN CORPUSCULAR HGB CONC 32.3 g/dl (32.0-36.5); MEAN CORPUSCULAR VOLUME 97.5 fl (80.0-96.0); PLATELET COUNT, AUTOMATED 336 10^3/uL (150-450); RED BLOOD COUNT 3.62 10^6/uL (4.30-6.10); RED CELL DISTRIBUTION WIDTH 15.4 % (11.5-14.5); WHITE BLOOD COUNT 7.3 10^3/uL (4.0-10.0)
[2018-02-09 13:26] LABS: ANION GAP 8 MEQ/L (8-16); BLOOD UREA NITROGEN 22 MG/DL (7-18); CARBON DIOXIDE LEVEL 27 MEQ/L (21-32); CHLORIDE LEVEL 105 MEQ/L (98-107); CREATININE FOR GFR 1.47 MG/DL (0.70-1.30); GLOMERULAR FILTRATION RATE 49.6 (>42); GLUCOSE, FASTING 112 MG/DL (70-100); POTASSIUM SERUM 4.6 MEQ/L (3.5-5.1); SODIUM LEVEL 140 MEQ/L (136-145)
== END ==
LOC: M SMT 08:57
DX: Z85.51 Personal history of malignant neoplasm of bladder (principal)
CPT/HCPCS: 80048

== ENCOUNTER → 2018-06-25 | Outpatient (CLI) | payer MEDICARE ==
[~2018-06-25] MED LIST changes: +ASPI1TAB PO; +ASPI81TA85 PO; +CEFD300CAP PO; +CHLO25TA PO; +CIPR500T3 PO; -CYSTO-CONRAY II 17.2% 250ML VIAL (Q9958) As Ordered; +ELIQ5TAB PO; +EXCETAB80 PO; +FISH100049 PO; +KLOR10TA76 PO; +LEVA750T7 PO; +LISI10TA4 PO; +METO25TA4 PO; +MULT1TAB10 PO; +OMEG1400 PO; +RAPA8CAP PO; +SIMV20TA2 PO; +SODI325T9 PO; +TRAM50TA2 PO; +TYLE650T35 PO; +VALS80TA PO; +VALSART/HCTZ; +VANC1CAP7 PO; +VITA400C97 PO; +VITA500T53 PO
[2018-06-25 13:53] LABS: CHOLESTEROL RISK RATIO 2.53 (<5)
== END ==
LOC: M SMT 09:27
PROVIDERS: ATTEND Internal Medicine Cardiovascular Disease
DX: E78.2 Mixed hyperlipidemia (principal)

== ENCOUNTER → 2018-12-08 | Outpatient (REF) | payer MEDICARE ==
[~2018-12-08] MED LIST changes: -ASPI1TAB PO; +ASPI81TA26 PO; -RAPA8CAP PO; +RAPA8CAP4 PO; +VITA500T17 PO; -VITA500T53 PO
[2018-12-08 18:08] LABS: PERCENT SATURATION 34.4 % (19.7-50.0)
== END ==
LOC: M LAB REF 17:30
PROVIDERS: ATTEND Internal Medicine
DX: D64.9 Anemia, unspecified (principal); Z85.51 Personal history of malignant neoplasm of bladder

== ENCOUNTER → 2018-12-15 | Outpatient (CLI) | payer MEDICARE ==
[~2018-12-15] MED LIST changes: +BYST5TAB2 PO; +SIMV10TA2 PO; +[UNRECOGNIZED DRUG - OTHER] PO
--- NOTE | 2018-12-15 19:00 | REP ---
Whole body PET CT scan for restaging of bladder carcinoma: There are no comparison PET CT scans. Comparison study is N abdomen and pelvis CT dated 07/16/2017. The patient has had a radicle cystectomy including bilateral pelvic lymphadenectomy and intra core portable neobladder creation. Scanning is performed from skull base to the upper thighs. Neck and supraclavicular areas: There are no hypermetabolic foci. There are two non hypermetabolic foci interspersed between cervical spine. Spinous processes, likely from ligamentous strain. Chest: There are no hypermetabolic foci. Abdomen, pelvis and upper thighs: There are postsurgical changes of neobladder bladder creation. There is bilateral hydronephrosis. The proximal ureters are dilated bilaterally. The mid and distal ureters are nondilated. There is a 2 cm focus of mildly hypermetabolic uptake in the pelvis at the interface of the ninoska bladder and the urethra, the standard uptake value measures 3.15. There is a mottled uptake pattern throughout the the medial bladder. This is nonspecific and may represent nonuniform enter mixing of radiolabeled urine with non radiolabeled urine. There is no mesenteric, periaortic or pelvic lymph node radial labeling. There are no skeletal foci. Impression: There is a 2 cm by mildly hypermetabolic focus at the interface of the urethra and the medial bladder. This is nonspecific and could be inflammatory, neoplastic or postsurgical. There is a mottled pattern of uptake within the medial bladder, likely artifact and enter mixing of radiolabeled urine with non radiolabeled urine. There are no other hypermetabolic foci. There is non hypermetabolic uptake posteriorly in the cervical spine interposed between the spinous processes at two levels, likely from ligamentous sprain. The study is performed with 9.6 mCi of F 18 F D G. Electronically Signed by Raji Bridges MD 12/15/2018 06:51 P
== END ==
LOC: M PLARAD 11:24
PROVIDERS: ATTEND Internal Medicine
DX: Z85.51 Personal history of malignant neoplasm of bladder (principal); R63.4 Abnormal weight loss
CPT/HCPCS: 78815; A9552

== ENCOUNTER → 2019-02-11 | Outpatient (CLI) | payer MEDICARE ==
[2019-02-11 10:23] LABS: HEMATOCRIT 38.7 % (42.0-52.0); HEMOGLOBIN 12.3 g/dl (13.5-17.5); MEAN CORPUSCULAR HEMOGLOBIN 32.8 pg (27.0-33.0); MEAN CORPUSCULAR HGB CONC 31.8 g/dl (32.0-36.5); MEAN CORPUSCULAR VOLUME 103.2 fl (80.0-96.0); PLATELET COUNT, AUTOMATED 177 10^3/uL (150-450); RED BLOOD COUNT 3.75 10^6/uL (4.30-6.10); WHITE BLOOD COUNT 5.4 10^3/uL (4.0-10.0)
[2019-02-11 10:49] LABS: CALCIUM LEVEL 8.6 MG/DL (8.8-10.2); CREATININE FOR GFR 1.53 MG/DL (0.70-1.30); GLOMERULAR FILTRATION RATE 47.2 (>42); POTASSIUM SERUM 4.9 MEQ/L (3.5-5.1)
== END ==
LOC: M SMT 08:52
PROVIDERS: ATTEND Nurse Practitioner Women's Health
DX: Z85.51 Personal history of malignant neoplasm of bladder (principal)

== ENCOUNTER → 2019-02-19 | Outpatient (REF) | payer MEDICARE ==
[2019-02-19 13:14] LABS: APPEARANCE, URINE MANUAL TURBID (CLEAR); COLOR, URINE MANUAL LT YELLOW (YELLOW)
[2019-02-19 13:16] LABS: BILIRUBIN, URINE MANUAL NEGATIVE (NEGATIVE); GLUCOSE, URINE (UA) MANUAL NEGATIVE (NEGATIVE); KETONE, URINE MANUAL NEGATIVE (NEGATIVE); LEUKOCYTE ESTERASE, URINE MAN POSITIVE (NEGATIVE); NITRITE, URINE MANUAL NEGATIVE (NEGATIVE); PROTEIN, URINE MANUAL 1+ mg/dL (NEGATIVE); UROBILINOGEN, URINE MANUAL NORMAL (NORMAL)
[2019-02-19 13:17] LABS: BLOOD URINE MANUAL TRACE (NEGATIVE)
[2019-02-19 13:30] LABS: WBC, URINE 20-30 /hpf (0-3)
[2019-02-19 13:31] LABS: RENAL EPITHELIAL CELLS, URINE SMALL AMOUNT /hpf; SQUAMOUS EPITHELIAL CELL URINE SMALL AMOUNT /hpf (SMALL AMT)
[2019-02-19 13:32] LABS: AMORPHOUS SEDIMENT, URINE LARGE AMOUNT (NEGATIVE); BACTERIA, URINE SMALL AMOUNT; HYALINE CAST, URINE NONE SEEN /lpf (0-1); MUCUS, URINE LARGE AMOUNT (NEGATIVE)
== END ==
LOC: M SMT 12:30
PROVIDERS: ATTEND Nurse Practitioner Women's Health
DX: C67.9 Malignant neoplasm of bladder, unspecified (principal)

== ENCOUNTER 2019-03-04 08:42 | Day surgery (SDC) | payer MEDICARE ==
[~2019-03-04] VITALS: Ht 180.3 cm; Wt 84.4 kg
[~2019-03-04 08:42] MED LIST changes: +NS 1,000 ML IV ONE
[2019-03-04] MEDS ORDERED: LIDOCAINE 2% INJ 100 MG/5 ML SDV (FOR ANES.) As Ordered ONE (09:55)
[2019-03-04] MEDS ORDERED: PROPOFOL 200 MG/20 ML VIAL As Ordered ONE (09:55)
--- NOTE | 2019-03-04 10:39 | ROOR ---
Patient Name: Dickson Gordon Procedure Date: 03/04/2019 10:14 AM Date of : 1940 Age: 78 Room: [facility] Gender: Male Note Status: Finalized Procedure: Colonoscopy Indications: Screening for colorectal malignant neoplasm Providers: Mitesh Simmons Jr, MD Referring MD: Nila Sharma DO Requesting Provider: Medicines: Propofol per Anesthesia Complications: No immediate complications. Procedure: Pre-Anesthesia Assessment: - Prior to the procedure, a History and Physical was performed, and patient medications and allergies were reviewed. The patient is competent. The risks and benefits of the procedure and the sedation options and risks were discussed with the patient. All questions were answered and informed consent was obtained. Patient identification and proposed procedure were verified by the physician and the nurse in the pre-procedure area and in the procedure room. Mental Status Examination: alert and oriented. Airway Examination: normal oropharyngeal airway and neck mobility. Respiratory Examination: clear to auscultation. CV Examination: normal. ASA Grade Assessment: II - A patient with mild systemic disease. After reviewing the risks and benefits, the patient was deemed in satisfactory condition to undergo the procedure. The anesthesia plan was to use moderate sedation / analgesia (conscious sedation). Immediately prior to administration of medications, the patient was re-assessed for adequacy to receive sedatives. The heart rate, respiratory rate, oxygen saturations, blood pressure, adequacy of pulmonary ventilation, and response to care were monitored throughout the procedure. The physical status of the patient was re-assessed after the procedure. The Colonoscope was introduced through the anus and advanced to the cecum, identified by appendiceal orifice and ileocecal valve. The colonoscopy was performed without difficulty. The patient tolerated the procedure well. The quality of the bowel preparation was adequate. Findings: The rectum, recto-sigmoid colon, descending colon, transverse colon, ascending colon, cecum, appendiceal orifice and ileocecal valve appeared normal. Multiple small and large-mouthed diverticula were found in the sigmoid colon. Non-bleeding external and internal hemorrhoids were found during endoscopy. The hemorrhoids were Grade II (internal hemorrhoids that prolapse but reduce spontaneously) and Grade III (internal hemorrhoids that prolapse but require manual reduction). Impression: - The rectum, recto-sigmoid colon, descending colon, transverse colon, ascending colon, cecum, appendiceal orifice and ileocecal valve are normal. - Diverticulosis in the sigmoid colon. - Non-bleeding external and internal hemorrhoids. - No specimens collected. Recommendation: - Discharge patient to home (ambulatory). - Repeat colonoscopy in 10 years for screening purposes. Mitesh Simmons MD Mitesh Simmons Jr, MD 03/04/2019 10:39:11 AM Electronically signed by Mitesh iSmmons Jr, MD Number of Addenda: 0 Note Initiated On: 03/04/2019 10:14 AM Estimated Blood Loss: Estimated blood loss: none.
[2019-03-04 11:00] VITALS: BP 139/64
== END 2019-03-04 11:13 | disposition home or self-care (01) ==
LOC: M OPP 08:42
PROVIDERS: ATTEND Surgery
DX: Z12.11 Encounter for screening for malignant neoplasm of colon (principal); Z86.010 Personal history of colon polyps; K57.30 Diverticulosis of large intestine without perforation or abscess without bleeding; K64.2 Third degree hemorrhoids; K64.1 Second degree hemorrhoids; I48.91 Unspecified atrial fibrillation; I10 Essential (primary) hypertension; E78.5 Hyperlipidemia, unspecified; Z92.21 Personal history of antineoplastic chemotherapy; Z86.19 Personal history of other infectious and parasitic diseases; M19.90 Unspecified osteoarthritis, unspecified site; M54.89 Other dorsalgia; M54.2 Cervicalgia; R51 Headache; Z85.51 Personal history of malignant neoplasm of bladder; N40.1 Benign prostatic hyperplasia with lower urinary tract symptoms; Z79.01 Long term (current) use of anticoagulants; Z79.899 Other long term (current) drug therapy

== ENCOUNTER → 2019-08-20 | Outpatient (CLI) | payer MEDICARE ==
[~2019-08-20] MED LIST changes: -NS 1,000 ML IV ONE; -SIMV10TA2 PO; +SIMV10TA21 PO; -SIMV20TA2 PO; +SIMV20TA22 PO
[2019-08-20 10:30] LABS: APPEARANCE, URINE MANUAL CLOUDY (CLEAR)
[2019-08-20 10:31] LABS: BILIRUBIN, URINE MANUAL NEGATIVE (NEGATIVE); BLOOD URINE MANUAL POSITIVE (NEGATIVE); COLOR, URINE MANUAL LT YELLOW (YELLOW); GLUCOSE, URINE (UA) MANUAL NEGATIVE (NEGATIVE); KETONE, URINE MANUAL NEGATIVE (NEGATIVE); LEUKOCYTE ESTERASE, URINE MAN POSITIVE (NEGATIVE); NITRITE, URINE MANUAL NEGATIVE (NEGATIVE); PROTEIN, URINE MANUAL NEGATIVE (NEGATIVE); UROBILINOGEN, URINE MANUAL NORMAL (NORMAL)
[2019-08-20 10:41] LABS: BACTERIA, URINE LARGE AMOUNT; RBC, URINE TNTC /hpf (0-3); WBC, URINE TNTC /hpf (0-3)
[2019-08-20 13:39] LABS: HEMATOCRIT 42.2 % (42.0-52.0); HEMOGLOBIN 13.8 g/dl (13.5-17.5); MEAN CORPUSCULAR HGB CONC 32.7 g/dl (32.0-36.5); MEAN CORPUSCULAR VOLUME 97.9 fl (80.0-96.0); PLATELET COUNT, AUTOMATED 228 10^3/uL (150-450); RED BLOOD COUNT 4.31 10^6/uL (4.30-6.10); WHITE BLOOD COUNT 7.6 10^3/uL (4.0-10.0)
[2019-08-20 14:21] LABS: CALCIUM LEVEL 8.9 MG/DL (8.8-10.2); CREATININE FOR GFR 1.56 MG/DL (0.70-1.30); GLOMERULAR FILTRATION RATE 46.1 (>42); POTASSIUM SERUM 3.6 MEQ/L (3.5-5.1)
== END ==
LOC: M PLALAB 09:02
PROVIDERS: ATTEND Nurse Practitioner Women's Health
DX: Z85.51 Personal history of malignant neoplasm of bladder (principal)

== ENCOUNTER → 2019-08-25 | Outpatient (REF) | payer MEDICARE | LOC: M SMT 17:22 | PROVIDERS: ATTEND Urology | DX: C67.9 Malignant neoplasm of bladder, unspecified (principal) ==

== ENCOUNTER → 2020-02-22 | Outpatient (CLI) | payer MEDICARE ==
[~2020-02-22] MED LIST changes: +ACET650T61 PO; -ASPI81TA85 PO; +ASPI81TA86 PO; -TYLE650T35 PO
[2020-02-22 10:49] LABS: HEMOGLOBIN 12.7 g/dl (13.5-17.5); MEAN CORPUSCULAR HEMOGLOBIN 30.9 pg (27.0-33.0); MEAN CORPUSCULAR HGB CONC 31.8 g/dl (32.0-36.5); MEAN CORPUSCULAR VOLUME 97.3 fl (80.0-96.0); PLATELET COUNT, AUTOMATED 190 10^3/uL (150-450); RED BLOOD COUNT 4.11 10^6/uL (4.30-6.10); WHITE BLOOD COUNT 5.5 10^3/uL (4.0-10.0)
[2020-02-22 11:11] LABS: CALCIUM LEVEL 8.6 MG/DL (8.8-10.2); CREATININE FOR GFR 1.44 MG/DL (0.70-1.30); GLOMERULAR FILTRATION RATE 50.5 (>42); POTASSIUM SERUM 4.1 MEQ/L (3.5-5.1)
== END ==
LOC: M LAB 09:35
PROVIDERS: ATTEND Urology
DX: C67.9 Malignant neoplasm of bladder, unspecified (principal)

== ENCOUNTER → 2020-07-19 | Outpatient (CLI) | payer MEDICARE ==
[~2020-07-19] MED LIST changes: +LISI10TA22 PO; -LISI10TA4 PO
[2020-07-19 12:32] LABS: CALCIUM LEVEL 9.3 MG/DL (8.8-10.2); CREATININE FOR GFR 1.72 MG/DL (0.70-1.30); GLOMERULAR FILTRATION RATE 41.1 (>42); MAGNESIUM LEVEL 2.7 MG/DL (1.8-2.4); PHOSPHORUS LEVEL 3.3 MG/DL (2.5-4.9); POTASSIUM SERUM 3.9 MEQ/L (3.5-5.1)
== END ==
LOC: M PLALAB 10:08
PROVIDERS: ATTEND Internal Medicine Cardiovascular Disease
DX: I10 Essential (primary) hypertension (principal)

== ENCOUNTER → 2020-08-28 | Outpatient (REF) | payer MEDICARE ==
[2020-08-28 13:38] LABS: HEMATOCRIT 41.3 % (42.0-52.0); HEMOGLOBIN 13.8 g/dl (13.5-17.5); MEAN CORPUSCULAR HEMOGLOBIN 32.2 pg (27.0-33.0); MEAN CORPUSCULAR HGB CONC 33.4 g/dl (32.0-36.5); MEAN CORPUSCULAR VOLUME 96.3 fl (80.0-96.0); PLATELET COUNT, AUTOMATED 185 10^3/uL (150-450); RED BLOOD COUNT 4.29 10^6/uL (4.30-6.10); WHITE BLOOD COUNT 5.8 10^3/uL (4.0-10.0)
[2020-08-28 15:30] LABS: CALCIUM LEVEL 8.9 MG/DL (8.8-10.2); CREATININE FOR GFR 1.41 MG/DL (0.70-1.30); GLOMERULAR FILTRATION RATE 51.6 (>42); POTASSIUM SERUM 3.7 MEQ/L (3.5-5.1)
== END ==
LOC: M PLALAB 13:04
PROVIDERS: ATTEND Urology
DX: Z85.51 Personal history of malignant neoplasm of bladder (principal)

== ENCOUNTER → 2020-09-26 | Outpatient (CLI) | payer MEDICARE ==
--- NOTE | 2020-09-26 14:49 | REP ---
INDICATION: CKD STAGE 3B COMPARISON: None TECHNIQUE: Real time powers scale ultrasound examination using curved array transducer. FINDINGS: Right kidney appears mildly atrophic with cortical thinning, increased central sinus fat and moderate to significant hydroureteronephrosis. Vascularity is relatively normal in appearance (RI equals 0.74). No obvious nephrolithiasis, cystic or renal mass lesion identified. Kidney measures 9.9 x 4.8 x 5.4 cm. Left kidney demonstrates increased central sinus fat with moderate to significant hydroureteronephrosis. Vascularity is relatively normal in appearance (RI equals 0.69). No obvious nephrolithiasis, cystic or renal mass lesion identified. Kidney measures 12.1 x 5.3 x 6.1 cm. Bladder demonstrates mobile debris. IMPRESSION: 1. Chronic medical renal disease along with moderate to significant bilateral hydroureteronephrosis. <Electronically signed by Andre Cai > 09/26/20 [id number]
== END ==
LOC: M RAD 13:56
PROVIDERS: ATTEND Internal Medicine Nephrology
DX: N18.32 Chronic kidney disease, stage 3b (principal); N13.30 Unspecified hydronephrosis

== ENCOUNTER → 2020-12-29 | Outpatient (REF) | payer MEDICARE | LOC: M WUC 16:23 | PROVIDERS: ATTEND Physician Assistant | DX: R11.2 Nausea with vomiting, unspecified (principal); Z79.899 Other long term (current) drug therapy ==

== ENCOUNTER → 2021-01-09 | Outpatient (REF) | payer MEDICARE ==
[~2021-01-09] MED LIST changes: +AMLO1TAB24 PO; +CHLO125TA PO; +D31000TA2 PO; -KLOR10TA76 PO; +MIRA3350 PO; +OMEP40CA5 PO; +ONDA-84 PO; +POTA-136 PO; +PROC10TA5 PO
== END ==
LOC: M LAB REF 17:07
PROVIDERS: ATTEND Internal Medicine
DX: Z86.004 Personal history of in-situ neoplasm of other and unspecified digestive organs (principal)

== ENCOUNTER → 2021-01-15 | Outpatient (REF) | payer MEDICARE ==
[~2021-01-15] MED LIST changes: -AMLO1TAB24 PO; -CHLO125TA PO; -D31000TA2 PO; -MIRA3350 PO; -OMEP40CA5 PO; -ONDA-84 PO; -PROC10TA5 PO
== END ==
LOC: M LAB REF 13:25
PROVIDERS: ATTEND Internal Medicine Nephrology
DX: E83.42 Hypomagnesemia (principal)

== ENCOUNTER → 2021-01-29 | Outpatient (CLI) | payer MEDICARE ==
[~2021-01-29] MED LIST changes: +AMLO1TAB24 PO; +CHLO125TA PO; +D31000TA2 PO
--- NOTE | 2021-01-29 13:30 | REP ---
INDICATION: HISTORY OF BLADDER CANCER R63.4. COMPARISON: PET CT of 12/15/2018. The latest prior CT of the abdomen and pelvis is 07/16/2017. TECHNIQUE: After the intravenous administration of 9.57 mCi of FDG 18 triplane whole-body PET-CT was performed from the skull base to the mid thigh. FINDINGS: In the right paraesophageal region of the lower chest there is a 1.3 cm sized hypermetabolic nodule with a maximal SUV value of 8.43. There are numerous hypermetabolic foci seen in the gastro hepatic ligament region having maximal SUV values ranging from 4.99 to 3.37. Just inferior to this in the region of the celiac axis there are numerous additional hypermetabolic foci of various sizes the largest measures approximately 1.8 cm and has a maximal SUV value of 7.70. There is para-aortic adenopathy with numerous hypermetabolic foci the largest is on the left, measures 2.3 cm and has a maximal SUV value of 5.7. This is just posterior to the left renal vein. Para-aortic adenopathy continues inferiorly and ceases with an enlarged hypermetabolic lymph node just anterior to the left psoas muscle which is just proximal to the aortoiliac bifurcation. This node measures 1.2 cm and has a maximal SUV value of 6.38. Extensive hypermetabolic activity seen throughout the urinary bladder but this cannot be distinguished from normal urinary hypermetabolism. IMPRESSION: There is hypermetabolic adenopathy seen above and below the diaphragm as described above. When the CT component of today's PET-CT is compared to the only CT I have to review of 07/16/2017 all the adenopathy seen today represents a change from that prior exam. Whether the hypermetabolism today represents a sequelae of the patient's disease or a new primary cannot be determined by this exam. Aside from the abdomen tablet some seen in the urinary bladder none of the hypermetabolic foci were seen on the prior PET-CT. <Electronically signed by Conner Castro > 01/29/21 [id number]
== END ==
LOC: M PLARAD 08:16
PROVIDERS: ATTEND Internal Medicine
DX: R91.8 Other nonspecific abnormal finding of lung field (principal); R63.4 Abnormal weight loss; Z85.51 Personal history of malignant neoplasm of bladder
CPT/HCPCS: 78815; A9552; G0463

== ENCOUNTER → 2021-02-01 | Outpatient (CLI) | payer MEDICARE ==
[~2021-02-01] MED LIST changes: -AMLO1TAB24 PO; -CHLO125TA PO; -D31000TA2 PO; +GASTROGRAFIN SOLUTION 30ML (Q9963) As Ordered ONE; +ISOVUE-370 76% 100ML VIAL As Ordered ONE
--- NOTE | 2021-02-01 16:30 | REP ---
INDICATION: ABN WEIGHT LOSS, ABN PET COMPARISON: There are no prior diagnostic contrast-enhanced CT examinations of the chest for comparison. TECHNIQUE: Standard helical technique after the intravenous administration of 100 cc Isovue 370. FINDINGS: There is no hilar adenopathy. There are no pleural or pericardial effusions. Seen in the posterior mediastinum, posterior to the esophagus, at the T10 level there is a solid nodule. This measures 1.6 cm. The imaged osseous structures are within normal limits. Evaluation of the lung cohen shows a 3 mm size nodule in the right upper lobe. IMPRESSION: 1. There is posterior mediastinal adenopathy as described above. This area was seen to be hypermetabolic on prior PET-CT. 2. There is a single 3 mm size nodule seen in the right upper lobe. This is outside the resolution of conventional PET-CT. There is a single 3 mm size nodule in the left lower lobe. This is also outside the resolution of conventional PET-CT. Follow-up for these nodules is recommended. 3. Other findings as described above. <Electronically signed by Conner Casrto > 02/01/21 [id number]
--- NOTE | 2021-02-01 16:37 | REP ---
INDICATION: ABN WEIGHT LOSS, ABN PET. COMPARISON: 07/16/2017 a noncontrast enhanced examination on the latest prior TECHNIQUE: Standard helical technique before and after the intravenous administration of 100 cc Isovue 370. Oral bowel preparatory contrast was administered prior to the exam. FINDINGS: The pre contrast enhanced portion examination shows a patent splenic densities to be within normal limits. Gravel-like choleliths are seen in the dependent portion of the gallbladder. There is no evidence of nephrolithiasis. The contrast-enhanced portion of the examination shows the liver and spleen to be within normal limits. The pancreas is atrophic but otherwise within normal limits. There is an enhancing nodule in the left adrenal gland the pre contrast enhanced Hounsfield unit density of which is much higher than would be expected for a benign adenoma. This nodule measures approximately 2.4 x 1.5 cm. There are multiple enlarged lymph nodes in the gastrohepatic ligament, para aortic region, and scattered throughout the mesentery. These are too numerous to count or individually assess. The bowel loops are within normal limits. There is no evidence of free fluid or free air. There is calcific atherosclerotic change seen in the abdominal aorta. Bone window technique throughout the exam shows spinal, hip, and sacroiliac joint degenerative changes. No definite lytic or blastic osseous lesions are identified. IMPRESSION: 1. Adenopathy as described above. 2. Cholelithiasis. 3. Left adrenal gland nodule which cannot be classified as benign at this time as described above. 4. Other findings as described above. <Electronically signed by Conner Castro > 02/01/21 [id number]
== END ==
LOC: M RAD 14:31
PROVIDERS: ATTEND Internal Medicine
DX: R91.8 Other nonspecific abnormal finding of lung field (principal); K80.20 Calculus of gallbladder without cholecystitis without obstruction; R63.4 Abnormal weight loss
CPT/HCPCS: 71260; 74178; Q9963; Q9967

== ENCOUNTER → 2021-02-06 | Outpatient (CLI) | payer MEDICARE ==
[~2021-02-06] MED LIST changes: -GASTROGRAFIN SOLUTION 30ML (Q9963) As Ordered ONE; -ISOVUE-370 76% 100ML VIAL As Ordered ONE
--- NOTE | 2021-02-06 14:32 | REP ---
INDICATION: DYSPHAGIA. COMPARISON: None. FINDINGS: KUB shows the intestinal gas pattern to be nonspecific. The organ silhouettes insofar as delineated are unremarkable. There is no evidence of free intraperitoneal air. Small amount of radiographic contrast is seen in multiple bowel loops. This is secondary to previous CT scan of the abdomen and pelvis which was obtained 02/01/2021. IMPRESSION: Nonspecific. <Electronically signed by Conner Castro > 02/06/21 [id number]
== END ==
LOC: M RAD 09:51
PROVIDERS: ATTEND Internal Medicine
DX: R13.10 Dysphagia, unspecified (principal); R63.4 Abnormal weight loss

== ENCOUNTER → 2021-02-21 | Outpatient (CLI) | payer MEDICARE ==
[~2021-02-21] MED LIST changes: +AMLO1TAB24 PO; +CHLO125TA PO; +D31000TA2 PO; +E-Z-GAS II EFFERVESCENT PACKET (SODIUM BICARB./CITRIC ACID/SIMETHICONE) As Ordered ONE; +E-Z-HD 98% w/w 340GM SUSP BTL As Ordered ONE; +E-Z-PAQUE 96% w/w SUSP 176GM BTL As Ordered ONE
--- NOTE | 2021-02-21 18:50 | REP ---
INDICATION: DYSPHAGIA. COMPARISON: CT chest abdomen pelvis dated 02/01/2021 TECHNIQUE: This procedure was performed by BROOKS Ma, under the direct supervision of Dr. Groves. Images were reviewed with Dr. Groves prior to dictation. Liquid barium and gas producing crystals were given in the erect position, as well as liquid barium in the prone oblique position in order to perform a double contrast upper GI examination. Additional liquid barium was given at the end of the examination in order to perform a small-bowel follow-through. FINDINGS: The manager pharmacy film shows no organomegaly or pathological masses. The intestinal gas pattern is unremarkable. The oral and pharyngeal stages of deglutition were unremarkable. Esophageal transport is prompt and efficient. There is a small Zenker's diverticulum. There is evidence of a small hiatal hernia. Gastroesophageal reflux was not observed on this examination. At the gastroesophageal junction there is mild narrowing and mucosal irregularity. This could be esophagitis or early neoplasm. Recommend endoscopy for further evaluation. The stomach ramirez are normally outlined. The rugal folds are smooth and regular. There is no gastritis, neoplasm, or ulcerative disease. The duodenal ramirez are normally outlined. The mucosal folds are smooth and regular. There is no duodenitis, peptic ulcer disease or neoplasm. The visualized portion of the proximal small bowel appears normal in course and caliber. The barium column was followed through the small bowel to the level of the terminal ileum. Small bowel transit time is approximately 60 minutes. During fluoroscopy gentle palpation shows all loops are freely movable and pliable. There is no fixed angulated loops. The small bowel mucosal pattern is normal in course and caliber. There is no transition to suggest a partial small bowel obstruction. Spot filming of the terminal ileum shows it to be unremarkable. IMPRESSION: There is a small Zenker's diverticulum. There is evidence of a small hiatal hernia. Gastroesophageal reflux was not observed on this examination. At the gastroesophageal junction there is mild narrowing and mucosal irregularity. This could be esophagitis or early neoplasm. Recommend endoscopy for further evaluation. Small bowel transit time was approximately 60 minutes. Two minutes of fluoroscopy time was utilized for this procedure. Some fluoroscopic images are performed with last image hold technology. These images require no additional radiation. <Electronically signed by Paulina Hawkins > 02/21/21 [id number] <Electronically signed by Raji Groves > 02/21/21 [id number]
== END ==
LOC: M RAD 08:18
PROVIDERS: ATTEND Internal Medicine
DX: K22.5 Diverticulum of esophagus, acquired (principal); R13.10 Dysphagia, unspecified; R63.4 Abnormal weight loss

== ENCOUNTER → 2021-03-01 | Outpatient (CLI) | payer MEDICARE ==
[~2021-03-01] MED LIST changes: -E-Z-GAS II EFFERVESCENT PACKET (SODIUM BICARB./CITRIC ACID/SIMETHICONE) As Ordered ONE; -E-Z-HD 98% w/w 340GM SUSP BTL As Ordered ONE; -E-Z-PAQUE 96% w/w SUSP 176GM BTL As Ordered ONE; +LIDOCAINE 1% MDV 20ML VIAL As Ordered ONE
[2021-03-01 13:31] VITALS: BP 145/67
[2021-03-01 14:23] LABS: BASO # 0.1 10^3/uL (0.0-0.2); EOS % 0.8 % (0.0-3.0); HEMATOCRIT 41.3 % (42.0-52.0); HEMOGLOBIN 13.7 g/dl (13.5-17.5); LYMPH # 1.8 10^3/uL (1.5-5.0); LYMPH % 36.2 % (24.0-44.0); MEAN CORPUSCULAR HEMOGLOBIN 32.2 pg (27.0-33.0); MEAN CORPUSCULAR HGB CONC 33.2 g/dl (32.0-36.5); MEAN CORPUSCULAR VOLUME 97.2 fl (80.0-96.0); MONO # 0.5 10^3/uL (0.0-0.8); MONO % 9.7 % (2.0-8.0); NEUTROPHILS # 2.5 10^3/uL (1.5-8.5); NEUTROPHILS % 51.9 % (36.0-66.0); PLATELET COUNT, AUTOMATED 194 10^3/uL (150-450); RED BLOOD COUNT 4.25 10^6/uL (4.30-6.10); WHITE BLOOD COUNT 4.8 10^3/uL (4.0-10.0)
[2021-03-01 14:34] LABS: INR 1.04
[2021-03-01 14:35] LABS: PARTIAL THROMBOPLASTIN TIME 30.7 SECONDS (25.9-37.0)
[2021-03-01 14:52] LABS: ALBUMIN 3.5 GM/DL (3.2-5.2); BILIRUBIN,TOTAL 0.7 MG/DL (0.2-1.0); CALCIUM LEVEL 9.2 MG/DL (8.8-10.2); CREATININE FOR GFR 1.43 MG/DL (0.70-1.30); GLOMERULAR FILTRATION RATE 50.8 (>42); POTASSIUM SERUM 3.7 MEQ/L (3.5-5.1)
--- NOTE | 2021-03-01 19:12 | REP ---
INDICATION: BLADDER CA W/ ENLARGED LYMPH NODE BY LT KIDNEY. COMPARISON: None. TECHNIQUE: Performed under the direct supervision of Dr. Groves. Bases a history of lymphadenopathy spread throughout the abdomen seen on a previous CT scan dated 02/01/2021. A periaortic lymph node near the left kidney was chosen for biopsy. The risks and benefits of the procedure were explained to the patient and informed consent was obtained. The periaortic lymph node was localized using CT guidance. The skin was prepped and draped in a sterile fashion. 1% lidocaine was used as a local anesthetic. Using CT guidance a 19/20 gauge coaxial needle biopsy system was inserted and advanced into the lymph node. Five core biopsy samples were obtained and sent to the lab. Estimated blood loss: Less than 1 mL The patient tolerated the procedure well and there were no immediate complications. After the appropriate amount to monitored convalescence the patient was discharged from the department. FINDINGS: None IMPRESSION: CT-guided left para aortic lymph node biopsy. <Electronically signed by Mundo Lewis > 03/01/21 [id number] <Electronically signed by Raji Groves > 03/01/21 [id number]
== END ==
LOC: M IRPRO 12:13
PROVIDERS: ATTEND Internal Medicine Medical Oncology
DX: C77.2 Secondary and unspecified malignant neoplasm of intra-abdominal lymph nodes (principal); C67.9 Malignant neoplasm of bladder, unspecified

== ENCOUNTER → 2021-03-16 | Outpatient (CLI) | payer MEDICARE ==
[~2021-03-16] MED LIST changes: -LIDOCAINE 1% MDV 20ML VIAL As Ordered ONE; +MIRA3350 PO; +OMEP-221 PO; +ONDA8TAB10 PO; +PROC10TA4 PO
== END ==
LOC: M LABSMTC 10:54
PROVIDERS: ATTEND Internal Medicine Gastroenterology
DX: Z01.812 Encounter for preprocedural laboratory examination (principal); Z20.822 Contact with and (suspected) exposure to COVID-19

== ENCOUNTER 2021-03-21 13:05 | Day surgery (SDC) | payer MEDICARE ==
[~2021-03-21] VITALS: Ht 180.3 cm; Wt 69.9 kg
[~2021-03-21 13:05] MED LIST changes: -MIRA3350 PO; +NS 1,000 ML IV ONE; -OMEP-221 PO; -ONDA8TAB10 PO; -PROC10TA4 PO
[2021-03-21] MEDS ORDERED: LIDOCAINE 2% 100MG/5ML SDV (FOR ANES.) As Ordered ONE (14:53)
[2021-03-21] MEDS ORDERED: propofoL 200 MG/20 ML VIAL As Ordered ONE (14:53)
[2021-03-21 15:42] VITALS: BP 145/71
[2021-03-26] MEDS ORDERED: MIRA3350 PO (15:19)
[2021-03-26] MEDS ORDERED: OMEP40CA5 PO (15:19)
[2021-04-17] MEDS ORDERED: ONDA-84 PO (09:33)
[2021-04-17] MEDS ORDERED: PROC10TA5 PO (09:33)
[2021-04-23] MEDS ORDERED: ONDA-84 PO (09:59)
[2021-04-23] MEDS ORDERED: PROC10TA5 PO (09:59)
== END 2021-03-21 15:43 | disposition home or self-care (01) ==
LOC: M OPP 13:05
PROVIDERS: ATTEND Internal Medicine Gastroenterology
DX: C15.9 Malignant neoplasm of esophagus, unspecified (principal); R13.10 Dysphagia, unspecified; R63.4 Abnormal weight loss; I48.91 Unspecified atrial fibrillation; I10 Essential (primary) hypertension; Z85.51 Personal history of malignant neoplasm of bladder; Z85.528 Personal history of other malignant neoplasm of kidney; Z79.899 Other long term (current) drug therapy

== ENCOUNTER → 2021-04-04 | Outpatient (CLI) | payer MEDICARE ==
[~2021-04-04] MED LIST changes: +LIDOCAINE 1% MDV 20ML VIAL As Ordered ONE; +MIDAZOLAM INJ 2MG/2ML VIAL (J2250 PER 1MG) As Ordered ONE; +MIRA3350 PO; -NS 1,000 ML IV ONE; +NS 1,000 ML IV SCH; +OMEP40CA5 PO; +ONDA-84 PO; +PROC10TA5 PO; +ceFAZolin 2 GM/D5W 50 ML IV BAG (J0690 PER 500MG) As Ordered ONE; +ceFAZolin SOD 2 GM in IV 1 EA IV ONE; +diphenhydrAMINE 50MG/ML VIAL (J1200) As Ordered ONE; +fentaNYL 100 MCG/2 ML INJECTION As Ordered ONE
[2021-04-04 18:10] VITALS: BP 126/67
== END ==
LOC: M IRPRO 13:30
PROVIDERS: ATTEND Internal Medicine Hematology & Oncology
DX: C67.9 Malignant neoplasm of bladder, unspecified (principal)
CPT/HCPCS: 36561; 99152; 99153; C1769; C1788; C1894; J0690; J1642; J1644; J2250; J3010

== ENCOUNTER → 2021-04-17 | Outpatient (CLI) | payer MEDICARE ==
[~2021-04-17] MED LIST changes: -LIDOCAINE 1% MDV 20ML VIAL As Ordered ONE; -MIDAZOLAM INJ 2MG/2ML VIAL (J2250 PER 1MG) As Ordered ONE; -NS 1,000 ML IV SCH; +OMEP-221 PO; -OMEP40CA5 PO; -ONDA-84 PO; +ONDA8TAB10 PO; +PROC10TA4 PO; -PROC10TA5 PO; -ceFAZolin 2 GM/D5W 50 ML IV BAG (J0690 PER 500MG) As Ordered ONE; -ceFAZolin SOD 2 GM in IV 1 EA IV ONE; -diphenhydrAMINE 50MG/ML VIAL (J1200) As Ordered ONE; -fentaNYL 100 MCG/2 ML INJECTION As Ordered ONE
--- NOTE | 2021-04-18 07:30 | ECGEPIP ---
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
--- NOTE | 2021-04-18 17:44 | ECHO ---
ECHOCARDIOGRAM DATE OF PROCEDURE: 04/17/2021 Age: Gender: Height: 180 cm Weight: 74 kg REFERRING PHYSICIAN: PAT SÁNCHEZ M.D. INDICATION: Chemotherapy drugs that may affect the heart (malignant neoplasm of the bladder, esophageal cancer). MEASUREMENTS: 2D Measurements: LVOT 2.0 cm Inferior septum 0.90 cm Posterior wall 0.91 cm Left ventricle diastole 5.2 cm Left ventricle systole 3.0 cm Left atrium 3.0 cm Left atrial volume index 30 Doppler Measurements: Mild aortic regurgitation Trace aortic regurgitation Peak aortic valve velocity 235 msec Aortic valve VTI 56.2 cm Peak aortic valve gradient 22 mmHg Mean aortic valve gradient 15 mmHg LVOT velocity 65.6 cm/s LVOT VTI 14.4 cm Mild mitral regurgitation No mitral stenosis Mitral E velocity 54.0 cm/s Mitral A velocity 68.8 cm/s Mitral deceleration time 218 msec Trace tricuspid regurgitation Estimated right ventricular systolic pressure 13-18 mmHg Estimated right atrial pressure 0-5 mmHg Very mild pulmonic regurgitation Pulmonary artery systolic pressure 38 mmHg MITRAL ANNULAR TISSUE DOPPLER E prime septal 3.9 cm/s, E prime lateral 4.5 cm/s DESCRIPTION: Rhythm was sinus. Image quality was fair. This was a 2D, M-mode, color flow Doppler, and pulsed wave Doppler examination including mitral annular tissue Doppler. CONCLUSIONS: 1. Normal left ventricle internal dimensions and wall-thickening. Normal regional LV wall motion and wall thickening. Normal LV systolic function. LVF 55% by visual assessment. Grade 1 LV diastolic dysfunction (impaired relaxation filling pattern). 2. Degenerative, calcific aortic valve disease with moderate focal thickening and focal calcific deposits of a 3-cuspid aortic valve. Moderate reduction in aortic cusp mobility. Mild aortic stenosis. Trace aortic regurgitation. 3. Normal estimated right ventricle systolic pressure versus mild elevation of pulmonary artery systolic pressure. Normal right ventricle size and systolic function. CVP estimated to be 0-5 mmHg based on respiratory variation of the inferior vena cava with transient respiratory collapse. 4. Mild mitral annular calcification. Mild mitral regurgitation. 5. Mild left atrial dilatation by left atrial volume index. 6. No pericardial effusion. PAT SÁNCHEZ M.D.
== END ==
LOC: M CARPUL 10:27
PROVIDERS: ATTEND Internal Medicine Medical Oncology
DX: C67.9 Malignant neoplasm of bladder, unspecified (principal); Z79.899 Other long term (current) drug therapy

== ENCOUNTER → 2021-05-01 | Outpatient (POV) | payer MEDICARE ==
[~2021-05-01] VITALS: Ht 180.3 cm; Wt 70.9 kg
[2021-05-01 14:45] VITALS: BP 140/82
== END ==
LOC: M IRPOV 14:40
PROVIDERS: ATTEND Radiology Diagnostic Radiology
DX: Z45.2 Encounter for adjustment and management of vascular access device (principal)

== ENCOUNTER → 2021-07-10 | Outpatient (CLI) | payer MEDICARE ==
[~2021-07-10] MED LIST changes: -D31000TA2 PO; +ISOVUE-370 76% 100ML VIAL As Ordered ONE; -OMEP-221 PO; +OMEP40CA5 PO; +ONDA-84 PO; -ONDA8TAB10 PO; -PROC10TA4 PO; +PROC10TA5 PO; +VITA100093 PO
== END ==
LOC: M RAD 15:46
PROVIDERS: ATTEND Internal Medicine Hematology & Oncology
DX: C15.9 Malignant neoplasm of esophagus, unspecified (principal); R91.8 Other nonspecific abnormal finding of lung field
CPT/HCPCS: 71260; 74177; Q9967

== ENCOUNTER → 2021-07-12 | Outpatient (CLI) | payer MEDICARE ==
[~2021-07-12] MED LIST changes: -ISOVUE-370 76% 100ML VIAL As Ordered ONE
== END ==
LOC: M CARPUL 12:15
PROVIDERS: ATTEND Internal Medicine Hematology & Oncology
DX: C15.9 Malignant neoplasm of esophagus, unspecified (principal); I35.0 Nonrheumatic aortic (valve) stenosis; I51.7 Cardiomegaly; R13.10 Dysphagia, unspecified; Z80.0 Family history of malignant neoplasm of digestive organs; Z80.51 Family history of malignant neoplasm of kidney; Z85.51 Personal history of malignant neoplasm of bladder
CPT/HCPCS: 93306; G0463

== ENCOUNTER → 2021-07-12 | Outpatient (CLI) | payer MEDICARE | LOC: M ONCR 10:15 | PROVIDERS: ATTEND General Practice | DX: C15.9 Malignant neoplasm of esophagus, unspecified (principal); R13.10 Dysphagia, unspecified; Z80.0 Family history of malignant neoplasm of digestive organs; Z80.51 Family history of malignant neoplasm of kidney; Z85.51 Personal history of malignant neoplasm of bladder ==

== ENCOUNTER 2021-07-16 13:38 | Outpatient (RCR) | payer MEDICARE ==
[2021-07-31] MEDS ORDERED: ACET-653 PO (10:01)
== END 2021-07-26 ==
LOC: M ONCR 13:38
PROVIDERS: ATTEND General Practice
DX: C15.5 Malignant neoplasm of lower third of esophagus (principal)

== ENCOUNTER 2021-08-17 08:04 | Outpatient (RCR) | payer MEDICARE ==
[~2021-08-17 08:04] MED LIST changes: +ACET-653 PO; +OXYC1SOL3 PO
== END 2021-08-25 ==
LOC: M ONCR 08:04
PROVIDERS: ATTEND General Practice
DX: C15.5 Malignant neoplasm of lower third of esophagus (principal)

== ENCOUNTER 2021-09-30 17:57 | Inpatient (IN) | payer MEDICARE ==
[~2021-09-30] VITALS: Ht 180.3 cm; Wt 57.8 kg
[2021-09-30 18:59] LABS: HEMATOCRIT 39.8 % (42.0-52.0); HEMOGLOBIN 13.8 g/dl (13.5-17.5); MEAN CORPUSCULAR HEMOGLOBIN 40.9 pg (27.0-33.0); MEAN CORPUSCULAR HGB CONC 34.7 g/dl (32.0-36.5); RED BLOOD COUNT 3.37 10^6/uL (4.30-6.10)
[2021-09-30] MEDS ORDERED: NS 1,000 ML IV ONE (19:15)
[2021-09-30 19:30] LABS: ALBUMIN 3.5 GM/DL (3.2-5.2); BILIRUBIN,DIRECT 0.3 MG/DL (0.0-0.2); BILIRUBIN,TOTAL 0.8 MG/DL (0.2-1.0); MEAN CORPUSCULAR VOLUME 118.1 fl (80.0-96.0); PLATELET COUNT, AUTOMATED 82 10^3/uL (150-450)
[2021-09-30 19:36] LABS: METAMYELOCYTES 1 % (0-0); NEUTROPHILS 95 % (28-66)
[2021-09-30 19:37] LABS: PLATELET ESTIMATE DECREASED (NORMAL)
[2021-09-30 19:38] LABS: ANISOCYTOSIS 1+
[2021-09-30] MEDS ORDERED: CEFEPIME HCL 1 GM in D5W MINI-BAG PLUS 50 ML IV ONE (20:00)
[2021-09-30] MEDS ORDERED: HALOPERIDOL 5MG/ML VIAL (J1630 PER 1) IV ONE (20:00)
[2021-09-30] MEDS ORDERED: VANCOMYCIN HCL 1,500 MG in IV FLUID PLACE HOLDER 1 EA IV ONE (20:00)
[2021-09-30] MEDS ORDERED: VANCOMYCIN HCL 750 MG, VIAL MATE ADAPTER 1 EACH in NS 250 ML IV ONE ×6 (22:00)
[2021-09-30] MEDS ORDERED: HOME MED LIST COMPLETE! XX SCH (23:15)
[2021-09-30] MEDS ORDERED: ACETAMINOPHEN TAB 650MG DOSE (2X325MG) PO PRN (23:55)
[2021-10-01] VITALS (8 sets, daily range): BP systolic 100–134; BP diastolic 56–82
[2021-10-01] MEDS ORDERED: NS 500 ML IV ONE
[2021-10-01] MEDS ORDERED: NS 1,000 ML IV SCH
[2021-10-01 02:15] LABS: INR 1.27; PROTHROMBIN TIME 16.3 SECONDS (12.7-14.5)
[2021-10-01 02:33] LABS: ALBUMIN 2.7 GM/DL (3.2-5.2); BILIRUBIN,TOTAL 0.6 MG/DL (0.2-1.0); CALCIUM LEVEL 7.7 MG/DL (8.8-10.2); CREATININE FOR GFR 1.68 MG/DL (0.70-1.30); GLOMERULAR FILTRATION RATE 42.1 (>35); MAGNESIUM LEVEL 2.2 MG/DL (1.8-2.4); PHOSPHORUS LEVEL 3.3 MG/DL (2.5-4.9); POTASSIUM SERUM 5.4 MEQ/L (3.5-5.1); TOTAL PROTEIN 5.2 GM/DL (6.4-8.2); URIC ACID 8.2 MG/DL (3.5-7.2)
[2021-10-01] MEDS: PIPERACILLIN/TAZOBACTAM SOD 2.25 GM in D5W MINI-BAG PLUS 50 ML IV SCH ×2 (04:54→09:08)
[2021-10-01 07:33] LABS: HEMATOCRIT 31.2 % (42.0-52.0); HEMOGLOBIN 10.6 g/dl (13.5-17.5); MEAN CORPUSCULAR HEMOGLOBIN 40.6 pg (27.0-33.0); RED BLOOD COUNT 2.61 10^6/uL (4.30-6.10)
[2021-10-01 07:53] LABS: MEAN CORPUSCULAR VOLUME 119.5 fl (80.0-96.0); PLATELET COUNT, AUTOMATED 48 10^3/uL (150-450)
[2021-10-01] MEDS ORDERED: NS 0.45% 1,000 ML IV SCH (07:55)
[2021-10-01] MEDS ORDERED: LACTOBACILLUS ACIDOPHILUS CAP (BACID) PO SCH (09:00)
[2021-10-01] MEDS ORDERED: VITAMIN D 1,000 INTERNATIONAL UNITS TABLET PO SCH (09:00)
[2021-10-01] MEDS ORDERED: APIXABAN 2.5 MG TAB (ELIQUIS) PO SCH (09:00)
[2021-10-01 09:16] LABS: ATYPICAL LYMPH 1 % (0-5); HYPERSEGMENTED POLYS 1+; LYMPHOCYTES 2 % (16-44); NEUTROPHILS 91 % (28-66)
[2021-10-01 09:18] LABS: DOHLE BODIES 1+; TEAR DROP CELLS 2+
[2021-10-01 09:19] LABS: OVALOCYTES 2+
[2021-10-01 09:20] LABS: PLATELET ESTIMATE DECREASED (NORMAL)
[2021-10-01] MEDS ORDERED: ATROPINE SULFATE 1% OP SOLN 2 ML BTL SL PRN (15:50)
[2021-10-01] MEDS ORDERED: VANCOMYCIN HCL 1,000 MG, VIAL MATE ADAPTER 1 EACH in NS 250 ML IV SCH (22:00)
[2021-10-03] MEDS: ONDANSETRON 4MG ORAL DISINTEGRATING TAB PO PRN (13:25)
[2021-10-05] MEDS: LORazepam 1 MG TAB PO PRN (18:07)
[2021-10-05] MEDS ORDERED: diphenhydrAMINE 50MG CAP PO PRN (19:35)
[2021-10-05] MEDS: ONDANSETRON 4MG ORAL DISINTEGRATING TAB PO PRN (20:03)
[2021-10-05] MEDS: MORPHINE 10MG/0.5ML ORAL CONCENTRATE SOLUTION U/D SL PRN (23:43)
[2021-10-06] MEDS: MORPHINE 10MG/0.5ML ORAL CONCENTRATE SOLUTION U/D SL PRN ×3 (07:41→17:56)
[2021-10-06] MEDS: LORazepam 1 MG TAB PO PRN ×3 (07:42→18:27)
== END 2021-10-07 04:54 | disposition expired | DRG 871 ==
LOC: M ED 17:57 → M ED INP 23:55 → ENRESERV 10-01 00:52 → M PCU 10-01 02:28 → M MS5PR 10-01 18:29
PROVIDERS: ADMIT Family Medicine; ATTEND Family Medicine
DX: A41.1 Sepsis due to other specified staphylococcus (principal); E43 Unspecified severe protein-calorie malnutrition; R64 Cachexia; Z68.1 Body mass index [BMI] 19.9 or less, adult; N39.0 Urinary tract infection, site not specified; N17.9 Acute kidney failure, unspecified; C79.89 Secondary malignant neoplasm of other specified sites; E87.2 Acidosis; E87.0 Hyperosmolality and hypernatremia; K56.7 Ileus, unspecified; D84.9 Immunodeficiency, unspecified; C67.9 Malignant neoplasm of bladder, unspecified; I10 Essential (primary) hypertension; I48.91 Unspecified atrial fibrillation; Z79.01 Long term (current) use of anticoagulants; Z79.899 Other long term (current) drug therapy; Z98.41 Cataract extraction status, right eye; Z98.42 Cataract extraction status, left eye; M19.90 Unspecified osteoarthritis, unspecified site; Z66 Do not resuscitate; R62.7 Adult failure to thrive; R33.9 Retention of urine, unspecified; D50.0 Iron deficiency anemia secondary to blood loss (chronic); E87.5 Hyperkalemia; K80.20 Calculus of gallbladder without cholecystitis without obstruction; D69.6 Thrombocytopenia, unspecified